=== PATIENT | female | born 1940 | race Caucasian/White ===

== ENCOUNTER 2016-06-12 14:40 | Outpatient (CLI) | payer MEDICARE, BC, OTHER ==
[~2016-06-12] VITALS: Ht 160 cm; Wt 71.8 kg
[~2016-06-12 14:40] MED LIST: ACETAMINOPHEN325 MG PO; ANTIVERT25 MG PO; ASPIRIN 81 MG E81 MG PO; CARAFATE1 G PO; CELEXA10 MG PO; COREG12.5 MG PO; COUMADIN3 MG PO; COUMADIN5 MG PO; EPITOL200 MG; EPITOL200 MG PO; FIORICET TABLET1 TAB PO; HEMOCYTE PLUS C1 CAP PO; IMDUR60 MG PO; LIPITOR10 MG; LIPITOR10 MG PO; NITROSTAT0.4 MG SL; PAMELOR10 MG PO; PEPCID40 MG PO; PHENERGAN25 M1 PO; PLAVIX75 MG PO; PRILOSEC20 MG PO; PRINIVIL20 MG PO; PROTONIX40 MG PO; VITAMIN B-1000 MCG/M IM; ZANTAC150 MG PO
[2016-06-12 16:48] VITALS: BP 146/65; Ht 160 cm; Wt 71.8 kg
[2016-06-12] MEDS ORDERED: BACLOFEN10 MG PO ×2 (16:52→17:12)
--- NOTE | 2016-06-12 17:00 | NUR ---
1640 H & H 8.9 27.3 1ST UNIT CHECKED AT BEDSIDE BY THIS NURSE AND DONNA SOLIMAN RN. INITIATED BY ALARIS PUMP AT 50/CC/HR.PREMEDS GIVEN PER MAY 1654 DENIES PROBLEMS. RATE INCREASED TO 150/CC/HR. REG DIET ORDERED.
--- NOTE | 2016-06-12 17:21 | NUR ---
1710 DENIES PROBLEMS WITH BLOOD, RATE INCREASED TO 200/CC/HR. LIGHT SUPPER DIET HAS BEEN ORDERED FOR PT.
--- NOTE | 2016-06-12 17:29 | NUR ---
1725 FINGER FOOD DIET SERVED IV SITE LOOKING GOOD AND PATENT. DENIES PROBLEMS.
--- NOTE | 2016-06-12 18:30 | NUR ---
UNIT PRBC'S FINISHED INFUSING, LINE FLUSHING NOW WITH NS AT KVO, PATIENT DENIES ANY COMPLAINTS, UNDERSTANDS NEED TO REMAIN FOR ONE HOUR BEFORE DISCHARGE AND AGREES
--- NOTE | 2016-06-12 19:35 | NUR ---
PATIENT DENIES ANY COMPLAINTS. VSS. LEFT FOREARM PIV DC'D WITH TIP INTACT. DISCHARGE INSTRUCTIONS REVIEWED WITH PATIENT AND SPOUSE. PATIENT DISCHARGED HOME VIA WHEELCHAIR TO PRIVATE VEHICLE WITH SPOUSE
== END 2016-06-12 19:35 | disposition home or self-care (01) ==
LOC: D.OPS 14:40
DX: D64.9 Anemia, unspecified (principal)

== ENCOUNTER → 2016-07-11 08:44 | Outpatient (CLI) | payer MEDICARE, BC, OTHER ==
[2016-06-12 16:48] VITALS: BMI 28.0
[~2016-07-11 08:44] MED LIST changes: +BACLOFEN10 MG PO
== END | disposition home or self-care (01) ==
LOC: D.CT 08:44
DX: R91.1 Solitary pulmonary nodule (principal)

== ENCOUNTER 2016-08-15 05:27 | Outpatient (CLI) | payer MEDICARE, BC, OTHER ==
[~2016-08-15] VITALS: Ht 160 cm; Wt 71.8 kg
[~2016-08-15 05:27] MED LIST changes: +ANTIVERT12.5 MG PO
[2016-08-15] MEDS ORDERED: VITAMIN D5000 UNIT PO (06:21)
[2016-08-15 06:28] VITALS: BP 184/79; Ht 160 cm; Wt 71.8 kg
[2016-08-15 06:34] LABS: BASOPHILS 0.6 % (0-2); EOSINOPHILS 3.7 % (0-7); HEMATOCRIT 34.2 % (36.0-48.0); IMMATURE GRANULOCYTES 0.3 % (0-5); LYMPHOCYTES 34.6 % (15-50); MCH 32.2 pg (26.0-34.0); MCHC 32.2 g/dL (31.0-37.0); MEAN PLATELET VOLUME 9.6 fL (7.4-10.4); NEUTROPHILS 48.8 % (40-80); RBC 3.42 10x6/uL (4.00-5.40); RDW 14.9 % (11.5-14.5); WBC 3.2 10x3/uL (4.8-10.8)
[2016-08-15 06:37] LABS: PLATELET COUNT 287 10x3/uL (130-400)
[2016-08-15 06:43] LABS: ANION GAP 6.4 mmol/L (8-16); CALCIUM 8.5 mg/dL (8.5-10.1); CARBON DIOXIDE 30.9 mmol/L (21.0-32.0); CREATININE - SERUM 0.9 mg/dL (0.6-1.3); POTASSIUM - SERUM 3.3 mmol/L (3.5-5.1)
[2016-08-15 06:46] LABS: APTT 22.7 SECONDS (22.8-39.4); INR 1.01 (0.85-1.17); PROTIME 13.1 SECONDS (11.6-15.0)
--- NOTE | 2016-08-15 07:12 | NUR ---
0700 KENNA SEBASTIAN RN NOTIFIED OF NO H & P ON CHART.
--- NOTE | 2016-08-15 09:39 | NUR ---
6040 SEE POST PROCEDURE VITAL SIGNS CHECK LIST FOR ALL VITAL SIGNS
--- NOTE | 2016-08-15 10:06 | NUR ---
1660 A PHONE CALL PLACED TO DR. KURTZ NURSE TO REPORT ELEVATED BP.
--- NOTE | 2016-08-15 10:57 | NUR ---
1057 PORTABLE CXR DONE.
== END 2016-08-15 14:15 | disposition home or self-care (01) ==
LOC: D.OPS 05:27 → D.CT 08:00 → D.OPS 14:15
PROVIDERS: Specialist
DX: C34.11 Malignant neoplasm of upper lobe, right bronchus or lung (principal)

== ENCOUNTER 2016-08-17 09:55 | Day surgery (SDC) | payer MEDICARE, BC, OTHER ==
[~2016-08-17] VITALS: Ht 160 cm; Wt 71.8 kg
[~2016-08-17 09:55] MED LIST changes: +VITAMIN D5000 UNIT PO
[2016-08-17 10:38] VITALS: BP 203/82; Ht 160 cm; Wt 71.8 kg
[2016-08-17 10:47] LABS: HEMATOCRIT 35.6 % (36.0-48.0); HEMOGLOBIN 11.7 g/dL (12-16); MCH 32.7 pg (26.0-34.0); MCHC 32.9 g/dL (31.0-37.0); MCV 99.4 fL (80.0-100.0); MEAN PLATELET VOLUME 10.4 fL (7.4-10.4); RBC 3.58 10x6/uL (4.00-5.40); RDW 15.2 % (11.5-14.5); WBC 3.3 10x3/uL (4.8-10.8)
--- NOTE | 2016-08-17 11:43 | NUR ---
PT WAS GIVEN IV HYDRALAZINE PER ANETHESIA ORDERS. BP IS DECREASIN/70 WAS LATEST READING. WILL CONTINUE TO MONITOR. CALL LIGHT WITHIN REACH WITH AT BEDSIDE.
--- NOTE | 2016-08-17 12:45 | NUR ---
1230- PT TO ROOM WITH HOB ELEVATED AND IN SUPINE POSITION. VSS. RESPONDING TO VERBAL STIMULI AND IS READY FOR FULL LIQUID TRAY. WILL NKI. 1245- TOLERATING FULL LIQUIDS. AT BEDSIDE.
--- NOTE | 2016-08-17 13:16 | NUR ---
1300- VOIDED WITHOUT DIFFICULTY. IV D/C'D, PT TOLERATED. CATHETER INTACT. 1310- DISCHARGE INSTRUCTIONS COMPLETED, PT VERBALIZES UNDERSTANDING. PAPERWORK SIGNED. 1315- PT DISCHARGED VIA WHEELCHAIR WITH .
--- NOTE | 2016-08-23 19:33 | OP ---
PATIENT NAME: CJ REDDY MEDICAL RECORD: [id number] :39 LOCATION:D.OPS ADMISSION DATE: SURGEON: ANDRÉS BREEN DO DATE OF OPERATION: 08/17/2016 PROCEDURE: EGD. INDICATIONS: Fecal occult blood positive and iron deficiency anemia. SCOPE: Olympus video gastroscope. MEDICATIONS: Propofol 180 mg IV per anesthesia. ESTIMATED BLOOD LOSS: None. COMPLICATIONS: None. FINDINGS: Informed consent was given. The patient was made comfortable with the above medication. After reaching an adequate level of sedation by slow IV push, the patient was placed on her left side. The endoscope was then advanced under direct visualization through the mouth to the second portion of the duodenum. The upper, middle, and distal third of the esophagus all appeared normal. At the GE junction, there was some mild LA class A reflux induced esophagitis present. From this point, a sliding type hiatal hernia could be visualized. The endoscope was advanced beyond the GE junction into the stomach and retroflexed to view the cardia which again revealed a small sliding type hiatal hernia. The fundus and body of the stomach appeared normal. As the scope was advanced into the antrum and prepyloric region, there was some evidence of previous ulcerations which appear like they have healed. There was some granularity to this site consistent with some mild gastritis. No biopsies were taken as the patient has had multiple upper endoscopies in the past with biopsies. Scope was advanced beyond the pylorus into the duodenum where the bulb and second portion of the duodenum appeared normal. The scope was then withdrawn from the patient. The patient tolerated the procedure well and there were no complications. IMPRESSION: 1. Mild, LA class A, reflux induced esophagitis of the gastroesophageal junction. 2. Small sliding hiatal hernia. 3. Findings consistent with gastritis including granularity and some erythema. 4. Healed ulcer sites in the antrum and prepyloric region. PLAN AND RECOMMENDATIONS: 1. Discharge home when recovery parameters are met. 2. Continue current diet. 3. Continue current medications, including famotidine 40 mg daily. 4. Schedule colonoscopy regarding the positive fecal immunochemical testing. 5. Further recommendations to follow findings at time of lower endoscopy. TRANSINT:[id number] Voice Confirmation ID: [id number] DOCUMENT ID: [id number] OPERATIVE REPORT [id number] CJ REDDY ANDRÉS BREEN DO at 1934 CC: [id number] DICTATION DATE: 08/17/16 1218 JOY LOADING MACHINE OPERATOR: 08/17/16 1908 [facility] 08/17/16 [id number] [place] [address]
== END 2016-08-17 13:15 | disposition home or self-care (01) ==
LOC: D.OPS 09:55
PROVIDERS: Anesthesiology
DX: K21.0 Gastro-esophageal reflux disease with esophagitis (principal); K44.9 Diaphragmatic hernia without obstruction or gangrene; D50.9 Iron deficiency anemia, unspecified

== ENCOUNTER → 2016-09-05 07:56 | Outpatient (CLI) | payer MEDICARE, BC, OTHER ==
[2016-08-17 10:38] VITALS: BMI 28.0
== END | disposition home or self-care (01) ==
LOC: D.RT 07:56
DX: C34.11 Malignant neoplasm of upper lobe, right bronchus or lung (principal)

== ENCOUNTER → 2016-09-15 12:10 | Outpatient (CLI) | payer MEDICARE, BC, OTHER ==
[2016-08-17 10:38] VITALS: BMI 28.0
== END | disposition home or self-care (01) ==
LOC: D.US 12:10
DX: I65.23 Occlusion and stenosis of bilateral carotid arteries (principal)

== ENCOUNTER 2016-09-25 08:20 | Inpatient (IN) | payer MEDICARE, BC, OTHER ==
[~2016-09-25] VITALS: Ht 160 cm; Wt 69.3 kg
[2016-09-25] VITALS (17 sets, daily range): BP systolic 115–158; BP diastolic 53–99; BMI 27.5
--- NOTE | 2016-09-25 09:10 | NUR ---
PT ARRIVED TO CV O2 FROM HOME. PT PLACED IN GOWN AND 2 20G PIV INTIATED. PT IS ALERT AND ORIENTED X4. S1S2 NOTED, SB PER CM. LUNG SOUNDS CLR BILAR. PPP-BOUNDING. LAB WORK AND XR- CHEST OBTAINED AT THIS TIME. SEE ADMISSION ASSESSMENT FOR FURTHER DETAIL.
[2016-09-25 09:16] LABS: HEMATOCRIT 37.3 % (36.0-48.0); MCH 32.3 pg (26.0-34.0); MCHC 32.2 g/dL (31.0-37.0); MCV 100.3 fL (80.0-100.0); MEAN PLATELET VOLUME 9.7 fL (7.4-10.4); RBC 3.72 10x6/uL (4.00-5.40); WBC 3.9 10x3/uL (4.8-10.8)
[2016-09-25 09:20] LABS: APTT 25.1 SECONDS (22.8-39.4); INR 1.16 (0.85-1.17); PROTIME 14.7 SECONDS (11.6-15.0)
[2016-09-25 09:21] LABS: ANION GAP 12.5 mmol/L (8-16); CALCIUM 9.5 mg/dL (8.5-10.1); CARBON DIOXIDE 27.4 mmol/L (21.0-32.0); CREATININE - SERUM 0.9 mg/dL (0.6-1.3); POTASSIUM - SERUM 3.9 mmol/L (3.5-5.1)
--- NOTE | 2016-09-25 10:00 | NUR ---
PT UTILIZES THE BATHROOM INDEPENDENTLY.
[2016-09-25] MEDS ORDERED: PHENERGAN25 M1 (10:39)
--- NOTE | 2016-09-25 12:00 | NUR ---
PT PROVIDED WITH LUNCH TRAY, PT EATS INDEPENDENTLY. PT VOICES NO OTHER NEEDS AT THIS TIME.
[2016-09-25 14:18] LABS: APPEARANCE CLEAR (CLEAR); BILIRUBIN NEGATIVE (NEGATIVE); COLOR YELLOW (YELLOW); GLUCOSE NEGATIVE (NEGATIVE); KETONE NEGATIVE (NEGATIVE); LEUKOCYTE ESTERASE 1+ (NEGATIVE); NITRITE NEGATIVE (NEGATIVE); PROTEIN NEGATIVE (NEGATIVE); UROBILINOGEN NORMAL (NORMAL)
[2016-09-25 14:22] LABS: BACTERIA NONE SEEN /hpf (NONE SEEN); EPITHELIAL CELLS NSEEN /hpf (0-5); RED CELLS - URINE NONE SEEN /hpf (0-5)
--- NOTE | 2016-09-25 15:00 | NUR ---
PT FAMILY HERE FOR VISITATION. UPDATE PROVIDED
--- NOTE | 2016-09-25 16:51 | NUR ---
PT SERVED DINNER TRAY SITTING UP IN CHAIR. PT VOICES NO OTHER NEEDS AT THIS TIME. VSS. WILL MONITOR.
--- NOTE | 2016-09-25 17:18 | NUR ---
BP 160-180 SYSTOLIC, DR WASHINGTON NOTIFIED. NO NEW ORDERS RECD.
--- NOTE | 2016-09-25 19:00 | NUR ---
Assessment complete. See flowsheet. Pt awake upon entrance into room and self-positioned to back with HOB @ 10 degrees. Pt alert, oriented to person, place, time and situation with no neuro deficits to note. Pt moving all extremities with 5/5 strength and no edema noted. Pupils size 3 bilaterally ERRLA. Pt respirations even and unlabored. O2 RA. Lung sounds clear to all lyons. HR SR with S1S2 auscultated. All peripheral pulses +2 with capillary refill <3 seconds. Left forearm PIV site CDI no s/s infection or infiltration with NS infusing @ 30cc/hr. Right hand PIV site CDI no s/s infection or infiltration with Heparin gtt infusing @ 1100un/hr. Abdomen soft, non-tender, non-distended with BS present to all quadrants. Pt denies pain at this time. Further needs denied. Rapport established. Call light and bedside table within pt reach. CPOC.
--- NOTE | 2016-09-25 20:30 | NUR ---
Pt up to bathroom and ambulating. IV paused.
--- NOTE | 2016-09-25 20:45 | NUR ---
Pt back to bed IV reconnected. VSS.
--- NOTE | 2016-09-25 21:00 | NUR ---
PM meds administered. Fresh ice water provided. See MAR> CPOC.
--- NOTE | 2016-09-25 23:00 | NUR ---
Reassessment complete. See flowsheet. Pt disconnected from IV tubings and monitoring briefly for bathroom privelages and self-ambulates with no deficits. Afterwards, pt back to bed to self-position for comfort. VSS. No neuro changes to note. O2 RA. Lung sounds remain CTA. HR SB with S1S2 auscultated. All peripheral pulses +2 with capillary refill <3 seconds. PIV sites remain CDI with NO IVF changes to note. PTT draw recently completed with results pending. BS +. No other changes to note. Call light and bedside table remain within pt reach. CPOC.
--- NOTE | 2016-09-25 23:31 | NUR ---
PTT 65.6. No changes to heparin gtt. Will recheck PTT in 6hrs.
[2016-09-26] VITALS (24 sets, daily range): BP systolic 99–164; BP diastolic 36–84; Ht 160 cm; Wt 69.3 kg
--- NOTE | 2016-09-26 01:00 | NUR ---
Pt resting quietly with VSS. NO s/s pain or distress and allowed to continue resting undisturbed. Call light and bedside table remain within pt reach. CPOC.
--- NOTE | 2016-09-26 03:00 | NUR ---
Reassessment complete. See flowsheet. Pt resting quielty with VSS and awakens easily to verbal stimulation with no neuro changes to note from previous assessment. Respirations unlabored. Lung sounds remain CTA. HR SB with S1S2 auscultated. All peripheral pulses +2 with capillary refill <3 seconds. PIV sites remain CDI with NO IVF changes to note. BS +. Pain denied. No changes to note. Patient denies further needs at this time and continues to rest. Call light and bedside table remain within pt reach. CPOC.
--- NOTE | 2016-09-26 05:00 | NUR ---
Pt helped OOB to bathroom.
--- NOTE | 2016-09-26 06:34 | NUR ---
PTT 89.1 NO changes to heparin gtt rate.
--- NOTE | 2016-09-26 07:00 | NUR ---
PT REPORT REC'D, PT CARE ASSUMED. PT RESTING WITH EYES CLOSED, NO C/O PAIN, VSS, ROOM AIR. SHIFT ASSESSMENT COMPLETED, SEE FLOW SHEET. LEFT FOREARM PIV WITH NS INFUSING AT 30CC/HR, NO SIGNS OF INFILTRATION, DRESSING CDI. RIGHT HAND PIV WITH HEPARIN INFUSING AT 1100UNITS/HR, NO REDENESS OR SIGNS OF INFILTRATION, DRESSING CDI. PT UP TO BATHROOM NEEDED. ROOM FREE OF CLUTTER, CALL LIGHT IN REACH, WILL CONTINUE TO MONITOR PT.
--- NOTE | 2016-09-26 08:30 | NUR ---
AMBULATED PT AROUND ROOM, PT TOELRATED WELL, WILL CONTINUE TO MONITOR PT.
--- NOTE | 2016-09-26 09:00 | NUR ---
PT FAMILY AT THE BEDSIDE, ALL QUESTIONS ANSWERED, VSS, WILL CONTINUE TO MONITOR PT.
--- NOTE | 2016-09-26 10:24 | NUR ---
DR. ELY AT THE BEDSIDE, ALL QUESTIONS ANSWERED, VSS, WILL CONTINUE TO MONITOR PT.
--- NOTE | 2016-09-26 10:27 | NUR ---
* Is the patient Alert and Oriented? Yes 0 * How many steps to enter\exit or inside your home? 1 0 * PCP Dr. Murillo 0 * Pharmacy [facility] on [address] * Preadmission Environment Home with Family 0 * ADLs Independent 0 * List name and contact numbers for known caregivers / representatives who currently or will assist patient after discharge: Spouse - Jack [phone] 0 * Can the patient safely return to the preadmission environment? Yes 0 * Has this patient been hospitalized within the prior 30 days at any hospital? No 09/26/2016 10:27 DCP: Discharge Planning Patient Name: CJ REDDY Admission Status: Urgent Accout number: [id number] Admission Date: 09-25-2016 : 1940 Admission Diagnosis:MALIGNANT NEOPLASM OF UPPER LOBE, RIGHT BRONCHUS OR KAR Attending: [place]LE Current LOS: 1 Anticipated DC Date: 10-04-2016 Planned Disposition: Primary Insurance: MEDICARE A & B Discharge Planning Comments: CM met with patient to assess dc plans/needs. Patient states she lives at home with her , Jack. She reports she was independent with all ADL's & IADL's prior to admission. She does not use any assistive devices for mobility and has not had home health services in the past. At dc, she will return home with her . She is open to rehab or home health if needed. CM will follow. Playground Monitor: Venus Saxena
--- NOTE | 2016-09-26 11:00 | NUR ---
PT RESTING WITH EYES CLOSED, C/O HEADACHE, REASSESSMENT COMPLETED, SEE FLOW SHEET. ROOM FREE OF CLUTTER, CALL LIGHT IN REACH, WILL CONTINUE TO MONITOR PT.
[2016-09-26 11:07] LABS: HEMATOCRIT 37.4 % (36.0-48.0); HEMOGLOBIN 12.3 g/dL (12-16); MCH 32.5 pg (26.0-34.0); MCHC 32.9 g/dL (31.0-37.0); MCV 98.9 fL (80.0-100.0); MEAN PLATELET VOLUME 9.7 fL (7.4-10.4); RBC 3.78 10x6/uL (4.00-5.40); RDW 13.9 % (11.5-14.5); WBC 4.8 10x3/uL (4.8-10.8)
[2016-09-26 11:10] LABS: INR 1.03 (0.85-1.17); PROTIME 13.4 SECONDS (11.6-15.0)
[2016-09-26 11:17] LABS: ALBUMIN 3.3 g/dL (3.4-5.0); ANION GAP 6.4 mmol/L (8-16); BILIRUBIN - TOTAL 0.2 mg/dL (0.2-1.3); CALCIUM 8.5 mg/dL (8.5-10.1); CARBON DIOXIDE 27.5 mmol/L (21.0-32.0); POTASSIUM - SERUM 3.9 mmol/L (3.5-5.1); PROTEIN - SERUM 6.9 g/dL (6.4-8.2)
[2016-09-26 13:45] LABS: APPEARANCE CLEAR (CLEAR); BILIRUBIN NEGATIVE (NEGATIVE); COLOR YELLOW (YELLOW); GLUCOSE NEGATIVE (NEGATIVE); KETONE NEGATIVE (NEGATIVE); LEUKOCYTE ESTERASE NEGATIVE (NEGATIVE); NITRITE NEGATIVE (NEGATIVE); PROTEIN NEGATIVE (NEGATIVE); UROBILINOGEN NORMAL (NORMAL)
--- NOTE | 2016-09-26 15:00 | NUR ---
PT RESTING WITH EYES CLOSED, NO C/O PAIN, VSS, REASSESSMENT COMPLETED, SEE FLOW SHEET. ROOM FREE OF CLUTTER, CALL LIGHT IN REACH, WILL CONTINUE TO MONITOR PT.
--- NOTE | 2016-09-26 15:21 | NUR ---
DR. DIAL AT THE BEDSIDE, VSS, WILL CONTINUE TO MONITOR PT.
--- NOTE | 2016-09-26 16:00 | NUR ---
TRANSFERRED PT FROM BED TO CHAIR, PT TOLERATED WELL, WILL CONTINUE TO MONITOR PT.
--- NOTE | 2016-09-26 16:54 | NUR ---
CALLED DR. THEODORE' OFFICE, SPOKE WITH PASTOR TO INFORM DR. THEODORE OF CONSULT FROM
--- NOTE | 2016-09-26 16:56 | NUR ---
NOTIFIED DR. SALAZAR OF CONSULT FROM DR. WASHINGTON, "HE TALKED TO ME ABOUT IT, I WILL SEE HER."
--- NOTE | 2016-09-26 17:41 | NUR ---
PT'S SBP 106-101, CALLED DR. WASHINGTON TO SEE IF HE WANTED US TO GIVE IT TO HER STILL WITH HER BP THERE, "GO AHEAD AND GIVE IT TO HER, SHE NEEDS IT, SHE DOESN'T NEED TO MISS A DOSE." WILL CONTINUE TO MONITOR PT.
--- NOTE | 2016-09-26 18:08 | NUR ---
PT FAMILY AT THE BEDSIDE, ALL QUESTIONS ANSWERED, VSS, WILL CONTINUE TO MONITOR PT.
--- NOTE | 2016-09-26 18:17 | NUR ---
TRANSFERRED PT FROM CHAIR TO BED, PT TOLERATED WELL, WILL CONTINUE TO MONITOR PT.
--- NOTE | 2016-09-26 19:00 | NUR ---
Assessment complete. See flowsheet. Pt resting upon entrance into room and awakens easily to verbal stimulation. Pt alert and oriented to person, place, time and situation with no neuro deficits to note. Pt moving all extremities with 5/5 strength and no edema noted. Pupils size 3 bilaterally ERRLA. Pt respirations even and unlabored. O2 RA. Lung sounds clear to all lyons. HR SR with S1S2 auscultated. All peripheral pulses +2 with capillary refill <3 seconds. Left forearm PIV site CDI no s/s infection or infiltration with NS infusing @ 30cc/hr. Right hand PIV site CDI no s/s infection or infiltration with Heparin gtt infusing @ 1000un/hr. Abdomen soft, non-tender, and non-distended with BS present to all quadrants. Pt up ad-lip and tolerating well. Pain denied. Needs denied at this time and pt continues to rest. Call light and bedside table remain within pt reach. CPOC.
--- NOTE | 2016-09-26 21:00 | NUR ---
Pt disconnected for ambulation around room.
--- NOTE | 2016-09-26 23:00 | NUR ---
Reassessment complete. See flowsheet. Pt resting to left side with VSS and awakens easily to verbal stimulation. No neuro changes to note. O2 RA. Lung sounds remain clear to all lyons. HR SB with S1S2 auscultated. All peripheral pulses +2 with capillary refill <3 seconds. PIV sites remain CDI with NO IVF changes to note. BS +. Pt continues to self-position for comfort and denies pain at this time. Call light and bedside table remain within pt reach. CPOC.
[2016-09-27] VITALS (36 sets, daily range): BP systolic 87–149; BP diastolic 35–68
--- NOTE | 2016-09-27 | NUR ---
Heparin gtt turned off per order. Pt NPO per order.
--- NOTE | 2016-09-27 01:00 | NUR ---
Pt resting quielty with VSS. No s/s pain or distress and allowed to continue resting undisturbed. Call light and bedside table remain within reach. CPOC.
--- NOTE | 2016-09-27 03:00 | NUR ---
Reassessment complete. See flowsheet. No changes to note. VSS. Pt awakens easily and denies needs at this time. Pt continues to self-position for comfort. Will provide chlorhexidine bath wipes later this AM for preop bath with clipping of any necessary hairs.
--- NOTE | 2016-09-27 05:00 | NUR ---
OOB for chlorhexidine bath with gown and linen changes. No hair to clip. Pt up to chair. VSS. Reminded of NPO status. Will administer preop meds when notified. Pt remains calm and cooperative. Denies anxiety/nervousness.
[2016-09-27 05:19] LABS: EOSINOPHILS 4.9 % (0-7); HEMATOCRIT 34.2 % (36.0-48.0); HEMOGLOBIN 11.1 g/dL (12-16); IMMATURE GRANULOCYTES 0.3 % (0-5); LYMPHOCYTES 38.5 % (15-50); MCH 32.4 pg (26.0-34.0); MCHC 32.5 g/dL (31.0-37.0); MCV 99.7 fL (80.0-100.0); MEAN PLATELET VOLUME 9.7 fL (7.4-10.4); NEUTROPHILS 43.3 % (40-80); PLATELET COUNT 237 10x3/uL (130-400); RBC 3.43 10x6/uL (4.00-5.40)
[2016-09-27 05:23] LABS: WBC 3.1 10x3/uL (4.8-10.8)
--- NOTE | 2016-09-27 05:30 | NUR ---
Air overlay mattress placed on bed with bed zeroed reading 158.7lbs with patient.
[2016-09-27 05:32] LABS: INR 1.05 (0.85-1.17); PROTIME 13.6 SECONDS (11.6-15.0)
[2016-09-27 05:38] LABS: APTT 25.1 SECONDS (22.8-39.4)
[2016-09-27 05:46] LABS: ANION GAP 11.7 mmol/L (8-16); CALCIUM 7.8 mg/dL (8.5-10.1); CARBON DIOXIDE 27.3 mmol/L (21.0-32.0); CREATININE - SERUM 0.9 mg/dL (0.6-1.3)
--- NOTE | 2016-09-27 06:41 | NUR ---
pt gone to OR with chart
--- NOTE | 2016-09-27 12:25 | NUR ---
PT ARRIVED BY BED FROM OR. SWITCHED OVER TO ICU MONITORS. PT CONFUSED. TOSSING AND TURNING IN BED. ATTEMPTING TO REDIRECT AND ORIENT TO PLACE. WILL STAY 1:1 NURSING UNTIL PT IS RECOVERED FROM ANESTHESIA AND MORE ORIENTED. EPIDURAL INFUSING PER MD ORDERS. RATE AT 7CC/HR WITH 4CC Q15 MIN BOLUS PRN. BILATERAL SCDs AND ABDOULAYE HOSE IN PLACE.
--- NOTE | 2016-09-27 12:55 | NUR ---
DR. WASHINGTON SPOKE WITH FAMILY AND UPDATED THEM ON PT'S STATUS.
--- NOTE | 2016-09-27 13:00 | NUR ---
PT C/O RIGHT SHOULDER PAIN. DR. DIAL AT BEDSIDE WITH ANESTHESIA TO ASSESS PT. ORDERS RECEIVED.
--- NOTE | 2016-09-27 13:05 | NUR ---
K PAD TO RIGHT SHOULDER.
--- NOTE | 2016-09-27 14:54 | NUR ---
DR. HOOK AT BEDSIDE.
--- NOTE | 2016-09-27 15:22 | NUR ---
PT C/O RIGHT EYE PAIN. DIFFICULTY OPENING. DR. DIAL NOTIFIED. ORDERS RECEIVED.
--- NOTE | 2016-09-27 15:40 | NUR ---
DR. DIAL AT BEDSIDE. MEDICATED RIGHT EYE WITH TETRACAINE DROPS AND COVERED WITH EYE PAD. PT REPORTS IMPROVEMENT IN PAIN.
--- NOTE | 2016-09-27 18:20 | NUR ---
PT'S AT BEDSIDE. UPDATED ON PT'S STATUS. PT REPOSITIONED FOR COMFORT. CONTINUED HEAT PAD TO RIGHT SHOULDER.
--- NOTE | 2016-09-27 19:15 | NUR ---
REPORT RECEIVED AND CARE ASSUMED. INITIAL SHIFT ASSESSMENT COMPLETED SEE FLOWSHEET. PT NOTED TO HAVE CT X 2, EPIDURAL WITH DRESSING CDI, ALERT, F/C TO CRITICORE, DRESSING S/P R THORACOTOMY CDI TO RIGHT LATERAL CHEST. PT NOTED TO HAVE A PATCH OVER RIGHT EYE D/T EARIER C/O EYE PAIN WHICH WAS ASSESSED BY DR. DIAL AND OFF GOING RN. NO C/O EYE DISCOMFORT AT THIS TIME. PT BEING MONITORED PER STANDARD CVICU PROTOCOL. IVF AND LINES ARE PROPERLY DATED AND LABELED AND CURRENT
--- NOTE | 2016-09-27 19:45 | NUR ---
SPO2 89-89 IS DONE 1250 ML WITH FAIR EFFORT. O2 STARTED AT 2L N/C
--- NOTE | 2016-09-27 20:15 | NUR ---
DR. THEODORE HERE TO SEE PT. UPDATE GIVEN
--- NOTE | 2016-09-27 20:49 | NUR ---
RT AT BEDSIDE FOR ABG
--- NOTE | 2016-09-27 20:58 | NUR ---
ABG RESULTS REVIEWED. SPO2 AT 100% O2 TURNED OFF AT THIS TIME PO2 [id number]
--- NOTE | 2016-09-27 21:15 | NUR ---
NO VISITORS AT THIS TIME
--- NOTE | 2016-09-27 21:45 | NUR ---
B/P KEEPS FALLING IN UPPER 80'S, MIGUEL-SYNEPHRINE STARTED AT 0.1MCG/KG/MIN WITH IMMEDIATE POSITIVE RESPONSE.
--- NOTE | 2016-09-27 23:00 | NUR ---
SHIFT REASSESSMENT COMPLETED SEE FLOWSHEET. PT REMAINS ON 0.1 MCG/KG/MIN MIGUEL-SYNEPHRINE AND SB/P REMAINS IN UPPER 90'S AND LOW 100'S. WILL CONTINUE TO MONITOR. PT DENIES PAIN DOES STATE RIGHT SHOULDER ACHES SOME DUE TO HER FIBROMYALGIA AND IS A CONSTANT SOURCE OF DISCOMFORT FOR HER. NO OTHER SIGNIFICANT CHANGES
[2016-09-28] VITALS (71 sets, daily range): BP systolic 80–139; BP diastolic 37–545
--- NOTE | 2016-09-28 01:15 | NUR ---
RT AT BEDSIDE FOR ABG'S, REVIEWED, NO CHANGES MADE
--- NOTE | 2016-09-28 03:00 | NUR ---
SHIFT REASSESSMENT COMPLETED SEE FLOWSHEET. NO SIGNIFICANT CHANGES. DOING IS WITH PT WHO IS DOING 1000ML. PT CONTINUES TO SEROSANG DRAINGAGE FROM CHEST TUBES DRAINING TO CDS 20CM SUCTION. ANTERIOR WITH PERSISTING AIR LEAK. USING PILLOW FOR SUPPORT AND TO RELIEVE PRESSURE
--- NOTE | 2016-09-28 03:30 | NUR ---
RADIOLOGY TECHS AT BEDSIDE FOR AM PCXR. PT TOLERATED WELL
--- NOTE | 2016-09-28 05:30 | NUR ---
blood drawn from cvl and sent for analysis
[2016-09-28 05:38] LABS: HEMATOCRIT 32.9 % (36.0-48.0); HEMOGLOBIN 10.8 g/dL (12-16); MCH 32.5 pg (26.0-34.0); MCHC 32.8 g/dL (31.0-37.0); MCV 99.1 fL (80.0-100.0); MEAN PLATELET VOLUME 9.5 fL (7.4-10.4); RBC 3.32 10x6/uL (4.00-5.40); RDW 14.1 % (11.5-14.5); WBC 9.5 10x3/uL (4.8-10.8)
[2016-09-28 05:54] LABS: ALBUMIN 2.7 g/dL (3.4-5.0); ANION GAP 11.4 mmol/L (8-16); BILIRUBIN - TOTAL 0.2 mg/dL (0.2-1.3); CALCIUM 7.6 mg/dL (8.5-10.1); CARBON DIOXIDE 26.1 mmol/L (21.0-32.0); CREATININE - SERUM 0.9 mg/dL (0.6-1.3); POTASSIUM - SERUM 3.5 mmol/L (3.5-5.1)
--- NOTE | 2016-09-28 06:15 | NUR ---
meds given as documented on may for nausea t/t discomfort in right shoulder. pt states she did get some relief from the toradol at 0530 but the nausea remains somewhat. now requesting antiemetic medication. pt has had to have pollo-synephrine titrated to maintain ordered pf 90-140. see iv flowsheet for specific changes
--- NOTE | 2016-09-28 06:58 | NUR ---
pt states her nausea is essentially gone and her shoulder feels "much better". remains on pollo-synephrine at 0.6mcg/kg/min at this time
--- NOTE | 2016-09-28 07:30 | NUR ---
ASSESSMENT DONE PER FLOWSHEET. SITTING UP EATING BREAKFAST. EPIDURAL ASSESSED AND INFUSING. VOICES NO CO AT TIME. MIGUEL TITRATED TO KEEP BP > 90.
--- NOTE | 2016-09-28 08:30 | NUR ---
RECEIVED PT FOR CARE FROM MALI MAYER RN. DR. WASHINGTON AT BEDSIDE WITH PT. UPDATED ON PT'S STATUS. DISCUSSED PLAN OF CARE WITH PT.
--- NOTE | 2016-09-28 10:55 | NUR ---
PT HAD COMPLETE BATH AND LINEN CHANGE. TOLERATED WELL. DRESSINGS CHANGED TO RIGHT CHEST TUBES X2. NO S/S OF INFECTION NOTED.
--- NOTE | 2016-09-28 12:19 | NUR ---
PTS FAMILY AT BEDSIDE.
--- NOTE | 2016-09-28 12:41 | NUR ---
Nutrition Follow Up: Pt is POD 1 pulmonary resection. Pt is eating 66% meal avg on a regular diet. Wt stable. Meds and labs reviewed. Rec continue current diet. Will continue to provide selective menus and honor food preferences. RD following.
--- NOTE | 2016-09-28 16:54 | NUR ---
DR. DIAL AT BEDSIDE. EPIDURAL DECREASED TO 4CC/HR BASAL RATE DUE TO HYPOTENTION AND CONFUSION.
--- NOTE | 2016-09-28 19:00 | NUR ---
REPORT RECEIVED AND ASSESMENT COMPLETED. SEE FLOWSHEET FOR FULL DETAILS. PT HAD A RIGHT UPPER LOBECTOMY ON SUNDAY. CURRENTLY ON ROOM AIR WITH AN O2 SAT OF 94%. OTHER THAN CHEST TUBE SUCTION SOUNDS, LUNGS SOUND CLEAR TO AUSCULTATION. THERE IS A LEAK IN THE ANTERIOR CHEST TUBE. MIGUEL DRIP AT 0.3 MCG/KG/MIN. WILL TITRATE THROUGHOUT SHIFT. VSS. WILL MONITOR.
--- NOTE | 2016-09-28 19:00 | NUR ---
REPORT RECEIVED AND ASSESSMENT COMPLETED. PT WAS RUL LOBECTOMY ON SUNDAY. CHEST TUBES IN PLACE IN RIGHT LAT CHEST. LEAK IN ANTERIOR TUBE. SUCTION CAN BE HEARD UPON AUSCULTATION WELL AN EXPIRATORY WHEEZE. MIGUEL DRIP AT 10 MCG/KG/MIN. WILL TITRATE NEEDED. VSS. WILL CONTINUE TO MONITOR.
--- NOTE | 2016-09-28 21:00 | NUR ---
2100 MEDS GIVEN. MIGUEL DRIP HAS BEEN TURNED OFF. B/P IN THE 130'S SYSTOLIC. VSS. WILL MONITOR. PT EXPERIENCING HALLUCINATIONS OFF AND ON, SHE IS AWARE THAT SHE IS HALLUCINATING, AND i AM ABLE TO REORIENT HER TO REALITY.
--- NOTE | 2016-09-28 23:00 | NUR ---
reassessment completed. see flowsheet for full details. pt continues to be confused; however still moises to reorient. pt temperaure has gone up. will continue to turn cough and deep breathe and monitor for need of further action.
[2016-09-29] VITALS (27 sets, daily range): BP systolic 82–140; BP diastolic 37–68
--- NOTE | 2016-09-29 01:00 | NUR ---
PT DOES NOT REPORT ANY HALLUCINATIONS AT THIS TIME. NO OTHER CHANGES IN STATUS. WILL CONTINUE TO MONITOR. VSS.
--- NOTE | 2016-09-29 03:00 | NUR ---
REASSESSMENT COMPLETED. SEE FLOWSHEET FOR FULL DETAILS. PT TEMP HAS NOW COME DOWN TO 38.0 C. VSS. WILL CONTINUE TO MONITOR
--- NOTE | 2016-09-29 05:00 | NUR ---
NO CHANGES IN PT STATUS AT THIS TIME. VSS. WILL CONTINUE TO MONITOR
[2016-09-29 06:08] LABS: HEMATOCRIT 28.7 % (36.0-48.0); HEMOGLOBIN 9.5 g/dL (12-16); MCH 32.9 pg (26.0-34.0); MCHC 33.1 g/dL (31.0-37.0); MCV 99.3 fL (80.0-100.0); MEAN PLATELET VOLUME 9.4 fL (7.4-10.4); RBC 2.89 10x6/uL (4.00-5.40); RDW 14.2 % (11.5-14.5); WBC 7.8 10x3/uL (4.8-10.8)
[2016-09-29 06:24] LABS: ALBUMIN 2.3 g/dL (3.4-5.0); ANION GAP 12.2 mmol/L (8-16); BILIRUBIN - TOTAL 0.33 mg/dL (0.2-1.3); CALCIUM 7.5 mg/dL (8.5-10.1); CARBON DIOXIDE 26.1 mmol/L (21.0-32.0); CREATININE - SERUM 0.9 mg/dL (0.6-1.3); POTASSIUM - SERUM 3.3 mmol/L (3.5-5.1); PROTEIN - SERUM 5.7 g/dL (6.4-8.2)
--- NOTE | 2016-09-29 19:00 | NUR ---
REPORT RECEIVED, SHIFT ASSESSMENT COMPLETE. PATIENT SLEEPING WHEN I ENTERED THE ROOM, AWOKE TO VOICE. STATED SHE WAS FEELING VERY GOOD. IS ALERT AND ORIENTED X4. BREATHING IS SHALLOW AND NONLABORED. CRACKLES CAN BE HEARD IN RUL,RML, AND ANDREW. CAN ALSO HEAR SUCTIONING FROM THE CHEST TUBE. STRONG COUGH PERFORMED WITHOUT PRODUCTIVITY. S1S2 NOTED WITH NSR ON MONITOR. CHEST TUBE X2 ON RIGHT LATERAL CHEST. SITE IS C/D/I. CONNECTED TO 20CM SUCTION. AIR LEAK NOTED IN ANTERIOR CT, NONE IN POSTERIOR. BARBER CATHETER DRAINING YELLOW URINE TO GRAVITY. ABDOULAYE'S AND SCD'S REMOVED FOR SKIN INTEGRITY ASSESSMENT AND REPLACED. PERIPHERAL PULSES +2 BILATERAL. RIGHT SUBCLAVIAN CL DRESSING IS C/D/I, BIOPATCH IN PLACE, SWAB CAPS IN USE. SEE IV FLOWSHEET FOR FLUIDS. CURRENTLY OFF BP SUPPORT DRUGS, VSS. FENTANYL INFUSING @ 4ML/HR PER EPIDURAL. SITE IS SECURED TO BACK AND C/D/I. PATIENT ABLE TO MOVE HANDS AND FEET. STATES SHE HAS NO PAIN. PATIENT HAS SLIGHT FEVER, COVERS REMOVED AND WILL REASSESS. DENIES NEED AT THIS TIME.
--- NOTE | 2016-09-29 21:00 | NUR ---
NO VISITORS AT THIS TIME. NIGHT MEDS GIVEN.
--- NOTE | 2016-09-29 23:00 | NUR ---
REASSESSMENT COMPLETE PER FLOWSHEET, SEE FOR DETAILS. NO ACUTE CHANGES. VSS. DENIES PAIN. WILL MONITOR.
--- NOTE | 2016-09-29 23:15 | NUR ---
ICE PACKS PLACED ON PATIENT FOR TEMP OF 101.3.
[2016-09-30] VITALS (45 sets, daily range): BP systolic 78–190; BP diastolic 40–96
--- NOTE | 2016-09-30 01:05 | NUR ---
PATIENT DENIES NEED AT THIS TIME, VSS. WILL MONITOR.
--- NOTE | 2016-09-30 03:10 | NUR ---
REASSESSMENT COMPLETE PER FLOWSHEET, SEE FOR DETAILS. VSS, PATIENT DENIES NEED AT THIS TIME. WILL MONITOR.
--- NOTE | 2016-09-30 05:33 | NUR ---
PATIENT PLACED ON 2L NC PER LOW O2 ON ABG.
[2016-09-30 06:06] LABS: HEMATOCRIT 28.8 % (36.0-48.0); HEMOGLOBIN 9.6 g/dL (12-16); MCH 32.9 pg (26.0-34.0); MCHC 33.3 g/dL (31.0-37.0); MCV 98.6 fL (80.0-100.0); MEAN PLATELET VOLUME 9.8 fL (7.4-10.4); RBC 2.92 10x6/uL (4.00-5.40); RDW 13.8 % (11.5-14.5); WBC 8.6 10x3/uL (4.8-10.8)
[2016-09-30 06:27] LABS: ALBUMIN 2.3 g/dL (3.4-5.0); ANION GAP 11.6 mmol/L (8-16); BILIRUBIN - TOTAL 0.24 mg/dL (0.2-1.3); CARBON DIOXIDE 26.8 mmol/L (21.0-32.0); CREATININE - SERUM 0.8 mg/dL (0.6-1.3); POTASSIUM - SERUM 3.4 mmol/L (3.5-5.1)
--- NOTE | 2016-09-30 06:45 | NUR ---
TEMP OF 99F PER CRITICORE. ICE PACKS REMOVED.
--- NOTE | 2016-09-30 08:20 | NUR ---
REPOSITIONED IN BED. VERY CHEERFUL THIS AM. NO NEEDS OR C/O.
--- NOTE | 2016-09-30 12:10 | NUR ---
FAMILY AT BEDSIDE. PT EATING LUNCH. NO CURRENT C/O.
--- NOTE | 2016-09-30 13:26 | OP ---
PATIENT NAME: CJ REDDY MEDICAL RECORD: [id number] :38 LOCATION:[facility].CV05 ADMISSION DATE:09/25/16 SURGEON: DANIEL WASHINGTON MD OPERATION DATE: 09/27/16 SURGEON: Daniel Washington M.D. ANESTHESIA: General endotracheal by Dr. Hartley. PROCEDURE: 1. Right thoracotomy with right upper lobe resection. 2. Right mediastinal lymphadenectomy. 3. Flexible fiberoptic bronchoscopy. PREOPERATIVE DIAGNOSIS: Squamous cell carcinoma right upper lobe. POSTOPERATIVE DIAGNOSIS: Squamous cell carcinoma right upper lobe. INDICATION FOR OPERATION: Carcinoma right upper lobe. FINDINGS OF OPERATION: Carcinoma right upper lobe. Multiple levels of lymph nodes were removed and sent for pathology. The level R7 node was heavily calcified. ESTIMATED BLOOD LOSS: Less than 150 mL. SPECIMENS: 1. Right upper lobe. 2. Lymph node level R10. 3. Lymph node level R4. 4. Lymph node level R7. 5. Lymph node level R9. 6. Lymph node level R8. PROCEDURE IN DETAIL: Flexible fiberoptic bronchoscopy demonstrated no endobronchial lesions at the beginning of the case. Good placement of the double lumen tube. Postprocedure, the right upper lobe stump was flush and well sealed. There was no blood or mucus in the tracheobronchial tree. After informed consent, adequate preoperative medication, and evaluation, the patient was brought to the operating room and placed on the table in the supine position. After induction of general endotracheal anesthesia and application of appropriate monitoring devices, the patient underwent flexible fiberoptic bronchoscopy and placement of a double lumen tube. The patient was then turned in a left lateral decubitus position protecting the pressure points and neurological structures. The right chest was prepped and draped in sterile field utilizing Betadine scrub, alcohol, and Betadine solution. Betadine impregnated drape was also used. An oblique incision was made over the fifth interspace and dissection carried down to the fascia. Hemostasis maintained with electrocautery. Latissimus was divided. The serratus was retracted anteriorly. The fifth interspace was opened, and the lung examined. There were dense adhesions in the major and minor fissure. The minor fissure was incomplete. There was no obvious metastasis to the chest wall or pleura. The hilum was circumferentially dissected. The branches to the right upper lobe were divided utilizing an Endo ANNMARIE stapler. The vessels to the upper lobe were divided at the bifurcation of the middle and upper lobe veins. Attention was then turned towards the distal descending pulmonary artery and dissection OPERATIVE REPORT [id number] CJ REDDY carried out anteriorly. There was one very small recurrent branch to the right upper lobe. This was doubly ligated with 5-0 Prolene suture. Attention was then turned toward the bronchus. The level 10 nodes were dissected with the specimen. An Endo ANNMARIE stapler was used to clamp the right upper lobe bronchus and the ventilation tested which was satisfactory. The bronchus was divided. The right upper lobe was examined and sent to pathology for permanent section. There appeared no disruption of the pleura, and the tumor was peripheral. Chest was irrigated with copious amounts of sterile water. The azygous vein and vena cava were mobilized, and the level 4 nodes were dissected free from the trachea utilizing a Harmonic scalpel. Then attention was turned towards the level 7 nodes which were dissected with Harmonic scalpel and removed. The 9 and 8 nodes were also sent for pathology. There were no lymph nodes found at the level 3 area. Chest was again irrigated with copious amounts of normal saline. There was no active bleeding. Two #36 chest tubes were brought in through the anterior and mid axillary line, one placed anteriorly superior and one posteriorly inferior. The chest was again irrigated. The lung was reinflated. The instrument counts and sponge counts were correct times two. Chest was closed in layers utilizing #2 Vicryl pericostal sutures, #1 Vicryl on the muscle layer, 2-0 Vicryl on the subcutaneous tissue, and skin approximated with 3-0 subcuticular Monocryl. Sterile dressings were applied. The patient was turned in a supine position. The patient then underwent flexible fiberoptic bronchoscopy with endobronchial mucus or lesions noted and a good seal of upper lobe bronchus. The patient was then awakened and transferred to the Cardiovascular-Intensive Care Unit in satisfactory condition. DANIEL WASHINGTON MD at 1326 CC: [id number] DICTATION DATE: 09/27/16 1400 POULTRY TRIMMER: OSCAR 09/28/16 1047 ADM IN [facility] [address] [place] [address]
--- NOTE | 2016-09-30 13:26 | HP ---
PATIENT: CJ REDDY MEDICAL RECORD: [id number] ACCOUNT: [id number] LOCATION:[place] [address] : 39 ADMISSION DATE: 09/25/16 HISTORY AND PHYSICAL EXAMINATION NameCJ REDDY (75yo, F) ID# [id number]. Date/Time09/06/2016 01:73DKAEN94 1940Service Dept.[facility] ClinicProviderEDPIPPA WASHINGTON MDInsuranceMed Primary: [place] ([place]) Insurance # : [id number] Referring Provider Name : GERHARD JOSHUA Employer Name : RETIRED Med Secondary: [place] (MEDICARE SUPPLEMENT) Insurance # : [id number] Policy/Group # : [id number] Referring Provider Name : GERHARD JOSHUA Employer Name : RETIRED Med Tertiary: [employer] (INDEMNITY) Insurance # : [id number] Policy/Group # : [id number] Referring Provider Name : GERHARD JOSHUA Employer Name : RETIRED Prescription: CMX - Member is eligible. Chief Complaint Lung mass RUL squamous cell CA Patient's Care Team Referring Provider (): GERHARD JOSHUA: [facility], [address] [place] [address] [id number], , Medical Oncologist: MANINDER WHITLEY MD: [address] [place] [id number], , Patient's Pharmacies [facility] ([facility]): [phone] [facility] [address] [facility] [phone], , Vitals BP:146/80 sitting R arm 09/06/2016 01:39 pm 158/86 sitting L arm 09/06/2016 01:41 pmBP Cuff Size:adult 09/06/2016 01:39 pm adult 09/06/2016 01:41 pmHR:72,reg 09/06/2016 01:41 pmHt:5 ft 3 in 09/06/2016 01:41 pmWt:158 lbs 09/06/2016 01:41 pmNotes:no breathing issues, has chronic anemia for which she takes B12 and occasional blood transfusions, she has fatigue she attributes to her anemia. She had pain in the right mid/upper ribs that Dr Joshua worked up, and she ended up with Dr Whitley and now us. 09/06/2016 01:43 pmBMI:28 09/06/2016 01:41 pmAllergies Reviewed Allergies CODEINEFLUPHENAZINETRAMADOLMedications Reviewed Medications [facility]- [facility] Wilsonatorvastatin 20 mg menhxn47/31/17 filledCaremarkbaclofen 10 mg /08/17 filledCaremarkbutalbital-acetaminophen- caffeine 50 mg-325 mg-40 mg /29/11 filledAETNAcarvedilol 12.5 mg tablet Take 1 tablet(s) twice a day by oral route.09/06/16 [facility] Wilsoncholecalciferol (vit D3)(bulk)09/06/16 [facility] Wilsoncitalopram 10 mg ezsntu96/05/17 filledCaremarkclopidogrel 75 mg /31/17 filledCaremarkcyanocobalamin (vit B-12) 1,000 mcg/mL injection kit Inject 1 mL every month by intramuscular route.09/06/16 [facility] WilsonEpitol 200 mg /15/17 filledCaremarkfamotidine 40 mg knespf82/03/17 filledCaremarkHemocyte-Plus 106 mg iron-1 mg capsule Take 1 capsule(s) every day by oral route.09/06/16 [facility] Wilsonisosorbide mononitrate ER 60 mg tablet,extended release 24 hr Take 1 tablet(s) every day by oral route.09/06/16 [facility] WilsonlevoFLOXacin 500 mg utjfmv02/10/17 filledCaremarklisinopril 20 mg /14/17 filledCaremarkmeclizine 25 mg tablet Take 1 tablet(s) 3 times a day by oral route.09/06/16 [facility] Wilsonnitroglycerin 0.[address] 1 tablet(s) by sublingual route.09/06/16 [facility] Wilsonpantoprazole 40 mg tablet,delayed gevjzzc31/05/17 filledCaremarksucralfate 1 gram /03/17 filledCaremarkwarfarin 3 mg fzjnsi51/15/17 filledCaremarkProblems HISTORY AND PHYSICAL [id number] CJ REDDY Reviewed Problems History of pulmonary embolus - Onset: 09/06/2016 History of placement of stent for coronary artery disease - Onset: 09/06/2016 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 - Onset: 07/14/2016, Right Acute bronchitis Headache Muscle weakness Arterial embolus and thrombosis Lung mass - Onset: 09/06/2016 Bronchitis Short of breath dressing/undressing Cough Family History Discussed Family History Non-contributory.Father- Malignant tumor of prostateSister- Malignant tumor of breastSocial History Discussed Social History Cardiology and General Smoking Status: Former smoker High Cholesterol: Y High blood pressure: Y Alcohol intake: None Occupation: retired Marital status: Caffeine intake: Occasional Surgical History Reviewed Surgical History Other - PTCA w/ stent x 3 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 on Coumdain Coronary Artery Disease: Y Depression: Y Heart Disease: Y - CAD High Blood Pressure: Y Hyperlipidemia: Y Warfarin Management: Y Documents for Discussion N/A Screening None recorded. HPI Lungs/Pleura Mass or Nodule Reported by patient. Symptoms: prior chest x-ray: abnormal; history of lung cancer Severity: improving Duration: 4 weeks Context: non-smoker; quit 30 years ago Location: upper right lobe squamous cell carcinoma right upper lobe ROS Patient reports no fever, no night sweats, no significant weight gain, no significant weight loss, and no exercise intolerance. She reports no dry eyes, no irritation, and no vision change. She reports no difficulty hearing and no ear pain. She reports no frequent nosebleeds and no nose/sinus problems. She reports no sore throat, no bleeding gums, no snoring, no dry mouth, no mouth ulcers, no oral abnormalities, and no teeth problems. She reports no chest pain, no arm pain on exertion, no shortness of silvana t h when walking, no shortness of breath when lying down, no palpitations, and no known heart murmur. She reports no cough, no wheezing, no shortness of breath, and no coughing up blood. She reports no abdominal pain, no vomiting, normal appetite, no diarrh e a, not vomiting blood, no nausea, and no constipation. She reports no incontinence, no difficulty urinating, no hematuria, and no increased frequency. She reports no muscle aches, no muscle weakness, no arthralgias/joint pain, no back pain, and no swellin g in the extremities. She reports no abnormal mole, no jaundice, and no rashes. She reports no loss of consciousness, no weakness, no numbness, no seizures, no dizziness, and no headaches. She reports no depression, no sleep disturbances, feeling safe in r HISTORY AND PHYSICAL [id number] WEST,ETNA J elationship, and no alcohol abuse. She reports no fatigue. She reports no swollen glands and no bruising. She reports no runny nose, no sinus pressure, no itching, no hives, and no frequent sneezing. ROS as noted in the HPI Physical Exam Patient is a 75-year-old female. Constitutional: General Appearance: well nourished, well developed, and appears stated age. Level of Distress: no acute distress. Ambulation: ambulating normally. ENMT: Nasal Mucosa: normal, no discharge, and pink and moist. Septum: not ma rkedly deformed. Turbinates: normal turbinate. Lips, Teeth, and Gums: normal lips, dentition, and gums. Oral Mucosa: no ulcer, mass, pallor, cyanosis, inflammation, swelling, rash, or leukoplakia and moist. Palate: normal hard palate and oropharynx: soft palate. Tongue: no erythema, lesions, enlargement, swelling, or deviation. Tonsils: no enlargement, lesions, mass (___ cm), or tonsil crypts. Posterior pharynx: no enlargement, erythema, exudate, ulcers, mass, or white patches. Neck: Neck: supple, trachea midline, no masses, and Full ROM. Thyroid: no enlargement or nodules and non-tender. Jugular Veins: normal jugular venous pressure and no siegel a waves present. Lungs: Respiratory effort: unlabored. Inspection: normal curve and chest wall expansion; no d eformity, tenderness, or swelling; and tactile fremitus present and equal on both sides. Auscultation: no wheezing, rales/crackles, or rhonchi and breath sounds normal. Percussion: no dullness, flatness, or hyperresonance. Cardiovascular: Precordial Exam: no heaves or precordial thrills and non displaced focal PMI. Heart Rate And Rhythm: normal heart rate and rhythm. Heart Sounds: no gallop, click, physiologically split S2, or pericardial friction rub and normal s1. Systolic Murmur: no systolic murmurs. D iastolic Murmur: no diastolic murmurs. Observation/Palpation of peripheral vascular system: no cyanosis, edema, varicosity changes, or palpable cord and normal dorsalis pedis and posterior tibialis. Abdomen: Inspection and Palpation: no bruit, tenderness, or masses and soft, non-distended, and normal aorta. Liver: non-tender and no hepatomegaly. Spleen: non-tender and no splenomegaly. Bowel Sounds: normal and no abdominal bruits. Lymphatic: no cervical LAD, axillary LAD, inguinal LAD, femoral LAD, supracla vicular LAD, or popliteal LAD. Musculoskeletal:: Motor Strength and Tone: normal bulk, tone, and motor strength. Gait and Station: normal gait, station, toe walk, heel walk, and tandem gait. Joints, Bones, and Muscles: no contractures, malalignment, tender ness, or bony abnormalities and normal movement of all extremities. Extremities: Inspection/Palpation of digits and nails: no clubbing, cyanosis, petechiae, infection, ischemia, or nodular lesions. Skin: Inspection and palpation: no rash, lesions, jaundice, ulcer, erythema, or induration and normal turgor. Neurologic: Mental Status/Orientation: oriented to person, place, problem/situation, and time. Mood/Affect: normal mood and affect. Assessment / Plan squamous cell carcinoma right upper lobe History of coronary artery stents HISTORY AND PHYSICAL [id number] CJ REDDY History of pulmonary embolus Chronic anticoagulation 1. Lung mass R91.8: Other nonspecific abnormal finding of lung field 2. 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 - Right C34.11: Malignant neoplasm of upper lobe, right bronchus or lung 3. History of placement of stent for coronary artery disease Z95.5: Presence of coronary angioplasty implant and graft 4. History of pulmonary embolus Z86.711: Personal history of pulmonary embolism Discussion Notes Pulmonary function test satisfactory for resection PET scan satisfactory for resection I have discussed her disease process with her and her in detail as well as the alternative methods of treatment we discussed right upper lobe resection carmina hutchinson the expected benefits and risks were discussed including bleeding, infection, stroke, , the imponderables. All of the above and wishes to proceed with planned surgery. We'll name bridge to surgery with heparin for her pulmonary embolus She will need to be of Plavix for a week prior to surgery will discuss with Dr. Cobos's office TATA WASHINGTON MD at 1326 CC: [id number] DICTATION DATE: 09/06/16 1330 BARREL RIFLER BUTTON: OSCAR 09/21/16 1105 ADM IN [facility] [address] [place] [address]
--- NOTE | 2016-09-30 14:46 | NUR ---
DOING LEG EXERCISES IN BED. DENIES PAIN OR C/O.
--- NOTE | 2016-09-30 19:10 | NUR ---
SHIFT ASSESSMENT COMPLETE, PATIENT RESTING IN BED WITH NO COMPLAINTS. ALERT AND ORIENTED. RR EVEN AND NONLABORED, CRACKLES HEARD WITH BREATH SOUNDS. CHEST TUBES ON RIGHT SIDE ARE COVERED WITH DRESSING AND C/D/I, DRAINING SEROSANG FLUID, CONNECTED TO 20CM SUCTION. AIRLEAK IN ANTERIOR TUBE. S1S2 WITH NORMAL SINUS ON MONITOR. BARBER DRAINING CLEAR YELLOW URINE TO GRAVITY. LOW GRADE FEVER PER CRITICORE, BLANKET REMOVED. ABDOULAYE'S AND SCD'S REMOVED FOR SKIN INTEGRITY CHECK. PERIPHERAL PULSES +2. EPIDURAL INFUSING IN UPPER BACK. SITE IS C/D/I. PATIENT PERFORMING IS AT THIS TIME AND ACHEIVED 750. TURN AND COUGHING ALSO DONE AT THIS TIME. VSS, WILL MONITOR.
--- NOTE | 2016-09-30 22:00 | NUR ---
NOTICED BLOOD PRESSURE HAD INCREASED, WENT TO CHECK ON PATIENT AND SHE STATED SHE WAS IN PAIN AND UNCOMFORTABLE. BOLUS OF PAIN MEDICINE GIVEN AND REPOSISTIONED FOR COMFORT. WILL MONITOR.
--- NOTE | 2016-09-30 22:15 | NUR ---
BLOOD PRESSURE HAS LOWERED, PATIENT STATES SHE FEELS BETTER.
--- NOTE | 2016-09-30 22:30 | NUR ---
DR WASHINGTON CALLED FOR ELEVATED BLOOD PRESSURE. ORDERS TO USE NITRO DRIP IF NEEDED.
[2016-10-01] VITALS (32 sets, daily range): BP systolic 99–170; BP diastolic 44–87
--- NOTE | 2016-10-01 01:00 | NUR ---
PATIENT RESTING IN BED WITH EYES CLOSED. OFF ALL BP DRIPS. VSS.
--- NOTE | 2016-10-01 03:00 | NUR ---
REASSESSMENT COMPLETE, SEE FLOWSHEET. VSS. PATIENT DENIES PAIN.
--- NOTE | 2016-10-01 04:00 | NUR ---
NITRO TURNED ON FOR BP, WILL MONITOR.
[2016-10-01 06:09] LABS: HEMATOCRIT 27.6 % (36.0-48.0); HEMOGLOBIN 9.1 g/dL (12-16); MCH 32.4 pg (26.0-34.0); MCV 98.2 fL (80.0-100.0); MEAN PLATELET VOLUME 9.8 fL (7.4-10.4); RBC 2.81 10x6/uL (4.00-5.40); RDW 13.5 % (11.5-14.5)
[2016-10-01 06:19] LABS: ANION GAP 9.1 mmol/L (8-16); CREATININE - SERUM 0.8 mg/dL (0.6-1.3); POTASSIUM - SERUM 3.1 mmol/L (3.5-5.1)
--- NOTE | 2016-10-01 12:40 | NUR ---
POSTERIOR CHEST TUBE DC'D PER DR. WASHINGTON. BARBER CATH DC'D PER ORDER. AWAITING ANESTHESIA FOR EPIDURAL DC AND PHYSCIAL THERAPY.
--- NOTE | 2016-10-01 13:00 | NUR ---
EPIDURAL DC'D PER ANESTHESIA.
--- NOTE | 2016-10-01 13:49 | NUR ---
UP TO CHAIR PER P.T. LINENS CHANGED. HYGIENE WIPES PROVIDED.
--- NOTE | 2016-10-01 16:27 | NUR ---
REMAINS UP TO CHAIR. NO CURRENT C/O.
--- NOTE | 2016-10-01 18:05 | NUR ---
BATH AND LINEN CHANGE COMPLETED. ORAL CARE GIVEN. TEDS AND SCD'S REMOVED FOR 30 MINUTES AND REPLACED. PT TOILETED. URINATED TIMES 1 AFTER BARBER DC.
--- NOTE | 2016-10-01 19:00 | NUR ---
Received patient resting in bed with eyes open, assessment completed per flowsheet. Patient AO x4, calm and cooperative. Eyes PERRLA @ 4mm with brisk response, patient wears glasses. S1/S2 noted NSR on telemetry with slight T wave elevation noted, rhythmic and regular. Breathing is slightly shallow on 2L via NC with O2 sat 98%, crackles noted bilateral upper and mid with diminished lower. Anterior Chest tube x1 noted R lateral chest to 20cm suction with slight bubbling noted in chamber, dressing reinforced CDI with no bleeding/drainage noted. Abdomen is soft and flat, nontender to palation with bowel sounds active x4. Patient ambulates to commode with assistance, 210ml concentrated yellow urine noted. Full ROM all extremities with weakness noted, all pulses palpable with cap refill < 3 sec. L Subclavian CVL noted, saline locked with dressing CDI. ABDOULAYE hose/SCD in use. Old Epidural site dressing CDI, no drainage/bleeding noted. Patient states Intermittent aching pain R shoulder/Lateral chest 5/10, PRN medication given and will reassess. No further needs at this time, all VSS and will continue to monitor.
--- NOTE | 2016-10-01 21:48 | NUR ---
Patient c/o pain 4/10 R shoulder, given PRN tylenol for pain. Patient immediately complained on nausea and vomited up 30ml yellow brown emesis. Washed patient face and provided cool washcloth, no further needs at this time, all VSS and will continue to monitor.
--- NOTE | 2016-10-01 21:50 | NUR ---
PRN medication given for nausea, no further needs and will reassess.
--- NOTE | 2016-10-01 22:54 | NUR ---
Patient assisted to commode, 160ml concentrated yellow urin noted. Back to bed, no further needs at this time.
--- NOTE | 2016-10-01 23:00 | NUR ---
Reassessment completed per flowsheet, patient resting in bed with eyes closed. S1/S2 noted Sinus Yefri on telemetry with HR 59, rhythmic and regular. Breathing is even and unlabored on 2L via NC with O2 sat 99%, crackles noted bilateral upper and mid with diminished lower. CT x1 Anterior R lateral chest to 20cm suction, dressing CDI. All pulses palpable with cap refill < 3 sec, skin is warm/dry to touch. Denies pain or other needs at this time, all VSS and will continue to monitor.
[2016-10-02] VITALS (32 sets, daily range): BP systolic 112–201; BP diastolic 46–99
--- NOTE | 2016-10-02 02:32 | NUR ---
Patient resting in bed with eyes closed, no s/s of distress. Repositioned for comfort, no further needs and will continue to monitor.
--- NOTE | 2016-10-02 02:33 | NUR ---
Patient assisted onto bedpen per request, 380ml clear yellow urine collected. Linen change performed, tolerated well with no further needs at this time. Bj continue to monitor.
--- NOTE | 2016-10-02 03:00 | NUR ---
Reassessment completed per flowsheet, patient resting in bed with eyes open. Toya RT at bedside for IS, patient performed 500. S1/S2 noted NSR on telemetry with HR 69, rhythmic and regular. Breathing is slightly shallow on 2L via NC with O2 sat 99%, Vent settings unchanged from previous. All pulses palpable with cap refill < 3 sec, denies pain or other needs at this time. All VSS and will continue to monitor.
--- NOTE | 2016-10-02 03:29 | NUR ---
Patient assisted onto bedpan per request, 500ml clear yellow urine collected.
--- NOTE | 2016-10-02 04:10 | NUR ---
Patient assisted onto bedpan per request, 325ml clear yellow urine collected.
--- NOTE | 2016-10-02 04:35 | NUR ---
Patient SBP trending upward, maintaining above 190. Nitro drip restared at 5mcg/kg/min, will titrate to maintain SBP 90-140.
--- NOTE | 2016-10-02 05:15 | NUR ---
Patient SBP > 160, Nitro drip increased to 7 mcg/kg/min. Will continue to monitor.
[2016-10-02 05:17] LABS: BASOPHILS 0.1 % (0-2); EOSINOPHILS 2.7 % (0-7); HEMATOCRIT 29.2 % (36.0-48.0); IMMATURE GRANULOCYTES 0.5 % (0-5); LYMPHOCYTES 13.2 % (15-50); MCH 33.2 pg (26.0-34.0); MCHC 34.2 g/dL (31.0-37.0); MEAN PLATELET VOLUME 9.8 fL (7.4-10.4); MONOCYTES 11.3 % (2-11); NEUTROPHILS 72.2 % (40-80); PLATELET COUNT 265 10x3/uL (130-400); RBC 3.01 10x6/uL (4.00-5.40); RDW 13.5 % (11.5-14.5); WBC 7.5 10x3/uL (4.8-10.8)
--- NOTE | 2016-10-02 05:30 | NUR ---
Patient SBP 180, Nitro increased to 10 mcg/kg/min. Will continue to monitor.
[2016-10-02 05:37] LABS: CALC OSMOLALITY 280 mosm/kg (275-300); CALCIUM 8.3 mg/dL (8.5-10.1); CARBON DIOXIDE 28.5 mmol/L (21.0-32.0); CHLORIDE - SERUM 104 mmol/L (98-107); GLUCOSE 119 mg/dL (74-106); SODIUM 141 mmol/L (136-145); UREA NITROGEN 9 mg/dL (7-18)
[2016-10-02 05:40] LABS: INR 1.15 (0.85-1.17); PROTIME 14.6 SECONDS (11.6-15.0)
[2016-10-02 05:49] LABS: CREATININE - SERUM 0.5 mg/dL (0.6-1.3); POTASSIUM - SERUM 2.7 mmol/L (3.5-5.1); eGFR NON AFRICAN AMERICAN > 90 mL/min (90-120)
--- NOTE | 2016-10-02 06:00 | NUR ---
Patient SBP > 160, Nitroglycerin drip increased to 15 mcg/kg/min. Will continue to monitor.
--- NOTE | 2016-10-02 06:30 | NUR ---
Called Dr Merida with critical potassium, orders to give 40 MeQ over 3 hours. Read back and confirmed.
--- NOTE | 2016-10-02 08:04 | NUR ---
PT SET UP TO CHAIR WITH ASSIST. INCENTIVE SPIROMETRY PERFORMED. BREAKFAST TRAY PROVIDED.
--- NOTE | 2016-10-02 09:15 | NUR ---
ASSISTED PT TO BEDSIDE COMMODE FOR BOWEL MOVEMENT. IS VERY WEAK AND UNSTEADY.
--- NOTE | 2016-10-02 10:00 | NUR ---
PT HAS PHYSICAL THERAPY ORDERS. GRANT CARDENAS RN INSTRUCTED TO TAKE PT CHEST TUBE OFF SUCTION FOR WALKING, AND THE PLACE BACK ON ONCE THERAPY COMPLETE.
--- NOTE | 2016-10-02 10:16 | NUR ---
PT SITTING UP IN CHAIR AT THIS TIME. ASKING TO GO BACK TO BED. LET HER KNOW WE WOULD LIKE FOR HER TO STAY UP IN CHAIR UNTIL AT LEAST AFTER LUNCH. WILL ALSO BE GETTING UP WITH PHYSICAL THERAPY SHORTLY. AGREED TO STAY IN CHAIR UNTIL AFTER LUNCH.
--- NOTE | 2016-10-02 12:18 | NUR ---
PT HAS BEEN UP TO WALK WITH PHYSICAL THERAPY. WAS ABLE TO WALK WITH WALKER OUT INTO THE JETER OUTSIDE HER ROOM BEFORE BECOMING TIRED. ASSISTED BACK TO CHAIR AND HOOKED BACK UP TO SUCTION AT CHEST TUBE. O2 SATS 96% ON ROOM AIR. NO DISTRESS. LUNCH TRAY HAS BEEN PROVIDED AT THIS TIME. FAMILY AT BEDSIDE FOR VISITATION.
--- NOTE | 2016-10-02 12:47 | NUR ---
PT ASSISTED UP TO BEDSIDE COMMODE
--- NOTE | 2016-10-02 14:41 | NUR ---
PT UP WALKING WITH PHYSICAL THERAPY. NO DISTRESS
--- NOTE | 2016-10-02 14:58 | NUR ---
Nutrition follow-up: Diet: regular PO intake ~50% of meals labs reviewed Wt: 162# Walking with pt. RDN following.
--- NOTE | 2016-10-02 16:55 | NUR ---
PT ASSISTED ON TO BEDPAN. URINATED. WAS UNABLE TO HOLD BLADDER TO GET UP TO BEDSIDE COMMODE. THEN ASSISTED TO CHAIR FOR DINNER.
--- NOTE | 2016-10-02 19:00 | NUR ---
Received patient sitting up in chair at bedside, assessment completed per flowsheet. Patient AO x4, calm and cooperative. Eyes PERRLA @ 4mm with brisk response, patient wears glasses. S1/S2 noted NSR on telemetry with HR 75, rhythmic and regular. Breathing is even and unlabored on room air with O2 sat 98%, Crackles noted bilateral upper and mid with diminished lower. Abdomen is round and soft with bowel sounds active x4, non-tender to palpation. Patient uses bathroom commode, no difficulties reported. Full ROM all extremities with weakness noted, all pulses palpable with cap refill < 3 sec. R subclavian noted, flushes easily but no return. Assisted patient back to bed, repositioned for comfort. C/O intermittent aching pain 5/10 in R shoulder/R lateral chest, PRN pain medication given. Denies other needs at this time, all VSS and will continue to monitor.
--- NOTE | 2016-10-02 21:00 | NUR ---
No visitors at this time, all HS meds given without difficulty. Patient repositioned for comfort, no further needs at this time. All VSS and will continue to monitor.
--- NOTE | 2016-10-02 22:30 | NUR ---
Patient assisted onto bedpan at patient request, 250ml clear yellow urine collected.
--- NOTE | 2016-10-02 23:00 | NUR ---
Reassessment completed per flowsheet, patient resting in bed with eyes closed. Patient is AO x4, calm and cooperative. S1/S2 noted NSR on telemetry with HR 66, rhythmic and regular. Breathing is slightly shallow on room air with O2 sat 97%. R lateral CT x1 secured with dressing CDI, 20cm suction with small leak noted in chamber. All pulses palpable with cap refill < 3 sec, denies pain or other needs at this time. All VSS and will continue to monitor.
[2016-10-03] VITALS (25 sets, daily range): BP systolic 108–166; BP diastolic 52–78
--- NOTE | 2016-10-03 01:00 | NUR ---
Patient resting in bed with eyes closed, breathing is slightly shallow on room air. Patient states she "feels better tonight" states some discomfort in R lateral chest. Repositioned for comfort and PRN pain medication provided, no further needs at this time.
--- NOTE | 2016-10-03 02:56 | NUR ---
Reassessment completed per flowsheet, patient resting in bed with eyes closed. Patient calm and cooperative, c/o discomfort in R shoulder/R lateral chest. S1/S2 noted NSR on telemetry with HR 60, rhythmic and regular. Breathing is slightly shallow on room air with O2 sat 94%, crackles noted bilateral upper and mid with diminished lower. R lateral chest CT x1 to 20cm H2O suction, small serosanguinous drainage noted in collection. All pulses palpable with cap refill < 3 sec, skin is warm to touch. Denies pain or other needs at this time, all VSS and will continue to monitor.
--- NOTE | 2016-10-03 03:15 | NUR ---
Patient assisted onto bedpan per request, 350ml clear yellow urine collected. No further needs at this time, all VSS and will continue to monitor.
--- NOTE | 2016-10-03 05:00 | NUR ---
Patient resting in bed with eyes closed, breathing is even and unlabored on room air. Patient denies pain or other needs at this time, all VSS and will continue to monitor.
--- NOTE | 2016-10-03 06:20 | NUR ---
Patient assisted onto bedpan at patient request, 400ml clear yellow urine collected. PRN pain medication given, will reassess.
[2016-10-03 06:30] LABS: HEMATOCRIT 28.9 % (36.0-48.0); HEMOGLOBIN 9.7 g/dL (12-16); MCH 32.6 pg (26.0-34.0); MCHC 33.6 g/dL (31.0-37.0); MEAN PLATELET VOLUME 9.8 fL (7.4-10.4); RBC 2.98 10x6/uL (4.00-5.40); RDW 13.7 % (11.5-14.5); WBC 6.6 10x3/uL (4.8-10.8)
[2016-10-03 06:44] LABS: INR 1.17 (0.85-1.17); PROTIME 14.8 SECONDS (11.6-15.0)
[2016-10-03 06:49] LABS: CALC OSMOLALITY 286 mosm/kg (275-300); CALCIUM 8.3 mg/dL (8.5-10.1); CARBON DIOXIDE 29.4 mmol/L (21.0-32.0); CHLORIDE - SERUM 107 mmol/L (98-107); GLUCOSE 108 mg/dL (74-106); PHOSPHOROUS 2.5 mg/dL (2.5-4.9); SODIUM 144 mmol/L (136-145); UREA NITROGEN 11 mg/dL (7-18)
[2016-10-03 06:51] LABS: CREATININE - SERUM 0.7 mg/dL (0.6-1.3); eGFR NON AFRICAN AMERICAN 86 mL/min (90-120)
--- NOTE | 2016-10-03 07:10 | NUR ---
Dr Merida notified about Potassium value 3.0, he will deal with it when arrives.
--- NOTE | 2016-10-03 08:31 | NUR ---
PT ASSISTED UP TO BEDSIDE COMMODE. VERY UNSTEADY AND STIFF. NOW IN CHAIR AT BEDSIDE. MORNING MEDICATIONS PROVIDED WELL BREAKFAST TRAY. AWAITING CHEST XRAY. PT TO BE SITTING UP PER DR WASHINGTON
--- NOTE | 2016-10-03 10:57 | NUR ---
PT UP IN CHAIR AT BEDSIDE. ON TELEPHONE. NO DISTRESS NOTED.
--- NOTE | 2016-10-03 11:00 | NUR ---
AWAITING PHARMACY TO RELOAD K-DUR TO PATIENT PROFILE. NOT SHOWING UP IN OUR MEDS AVAILABLE FOR THE PATIENT. HAVE PREVIOUSLY CALLED TO HAVE FIXED. THEY RE-RAN PROFILE TO GET MED ON LIST, BUT IS STILL NOT THERE.
--- NOTE | 2016-10-03 12:22 | NUR ---
PT SITTING UP IN CHAIR AT BEDSIDE FOR LUNCH AT BEDSIDE AT THIS TIME. PT HAS BEEN ASSISTED UP TO BEDSIDE COMMODE FOR BOWEL MOVEMENT.
--- NOTE | 2016-10-03 12:59 | NUR ---
PT ASKING TO GO BACK TO BED. ASKED HER TO GET IN HER AFTERNOON PHYSICAL THERAPY SESSION BEFORE GOING BACK TO BED.
--- NOTE | 2016-10-03 13:12 | NUR ---
HAS WALKED WITH PHYSICAL THERAPY. NOW ON BEDSIDE COMMODE.
--- NOTE | 2016-10-03 18:12 | NUR ---
PT SITTING UP IN CHAIR AT THIS TIME. FAMILY AT BEDSIDE FOR 6PM VISITATION.
--- NOTE | 2016-10-03 18:53 | NUR ---
COMPLETE BED BATH AND HAIR WASH PROVIDED. COMPLETE LINEN CHANGE. ORAL CARE DONE.
--- NOTE | 2016-10-03 19:30 | NUR ---
Assessment complete. See flowsheet. Pt awake upon entrance into room with VSS. Pt alert, oriented x4 and following all conversation and commands with no neuro deficits. Pt moving upper extremities with 4/5 strength and lower extremities with 3/5 strength and no edema noted. Pupils size 3 bilaterally ERRLA. Respirations shallow and unlabored. Pt receiving O2 @ 2L NC. Lung sounds present crackles to all lyons. Pt encouraged to deep breathe and cough with strong productive cough producing santiago sputum to tissue. Right lateral chest incision site CDI with dressing secure. Anterior chest tube insertion site to right lateral chest dressing changed and secured. Chest tube secure to 10cm suction retrieving serosanguanous fluid with small intermittent leak noted. HR SR with S1S2 auscultated. All peripheral pulses +2 with capillary refill <3 seconds. Right DLSC CVL site CDI saline locked. Abdomen soft with BS present to all quadrants. Temp 99.3F orally. ABDOULAYE hoses and SCDs secure. Pt denies pain at this time and pulled up in bed to position to left side. HOB @ 20 degrees with arms and heels bridged. Fresh ice water provided per request. Call xena gilman bedside table within reach. CPOC.
--- NOTE | 2016-10-03 21:30 | NUR ---
PM medications administered. See MAY. VSS. Ibuprofen administered for pain to back. Pt helped to reposition for comfort.
--- NOTE | 2016-10-03 22:20 | NUR ---
Pt helped onto bedpan for void 350cc yellow, clear urine. Afterwards pt pulled up in bed and helped to reposition for comfort. Call light and bedside table remain within pt reach. CPOC.
--- NOTE | 2016-10-03 23:30 | NUR ---
Reassessment complete. See flowsheet. Pt awake with VSS. NO neuro changes to note. O2 remains @ 2L NC. Respirations shallow and unlabored. Lung sounds continue to present crackles to all lyons. Coughing encouraged. SPO2 96%. Chest tube secure with no changes to note. HR SR. BS +. CVL site remains CDI; saline locked. Pt confortable and refuses repositioning at this time. Call light and bedside table remain within pt reach. CPOC.
[2016-10-04] VITALS (22 sets, daily range): BP systolic 114–175; BP diastolic 45–70
--- NOTE | 2016-10-04 01:30 | NUR ---
Pt resting quietly with VSS. NO s/s pain or distress.
--- NOTE | 2016-10-04 03:30 | NUR ---
Reassessment complete. See flowsheet. Pt resting and awakens with no neuro changes to note. VSS. Pt c/o pain. Will provide medication. See MAR. No other changes to note. Call light and bedside table remain within reach. CPOC.
--- NOTE | 2016-10-04 05:30 | NUR ---
Pt resting with VSS. NO s/s pain or distress.
[2016-10-04 05:51] LABS: HEMATOCRIT 28.2 % (36.0-48.0); HEMOGLOBIN 9.4 g/dL (12-16); MCH 32.5 pg (26.0-34.0); MCHC 33.3 g/dL (31.0-37.0); MCV 97.6 fL (80.0-100.0); MEAN PLATELET VOLUME 9.6 fL (7.4-10.4); RBC 2.89 10x6/uL (4.00-5.40); WBC 6.3 10x3/uL (4.8-10.8)
[2016-10-04 06:09] LABS: INR 1.26 (0.85-1.17); PROTIME 15.7 SECONDS (11.6-15.0)
[2016-10-04 06:12] LABS: CALC OSMOLALITY 286 mosm/kg (275-300); CALCIUM 7.9 mg/dL (8.5-10.1); CARBON DIOXIDE 26.9 mmol/L (21.0-32.0); CHLORIDE - SERUM 109 mmol/L (98-107); CREATININE - SERUM 0.6 mg/dL (0.6-1.3); GLUCOSE 110 mg/dL (74-106); MAGNESIUM - SERUM 1.8 mg/dL (1.8-2.4); PHOSPHOROUS 2.3 mg/dL (2.5-4.9); POTASSIUM - SERUM 3.4 mmol/L (3.5-5.1); SODIUM 144 mmol/L (136-145); UREA NITROGEN 10 mg/dL (7-18); eGFR NON AFRICAN AMERICAN > 90 mL/min (90-120)
--- NOTE | 2016-10-04 07:15 | NUR ---
PT ASSISTED ON TO BEDPAN. UNABLE TO HOLD FOR BEDSIDE COMMODE. LESS STIFF MOVING THIS MORNING.
--- NOTE | 2016-10-04 09:21 | NUR ---
NUTRITION MONITORING & EVAL CHART REVIEWED. DIET ADVANCED TO REG WITH ONLY ~10% INTAKE BREAKFAST. WILL CONTINUE TO PROVIDE DIET, MONITOR PO INTAKE. RD FOLLOWING
--- NOTE | 2016-10-04 10:09 | NUR ---
PT UP TO WALK WITH PHYSICAL THERAPY
--- NOTE | 2016-10-04 13:35 | NUR ---
PT UP WALKING WITH PHYSICAL THERAPY.
--- NOTE | 2016-10-04 17:45 | NUR ---
ALL NEW LINENS PROVIDED. PT REQUESTED BATH WIPES TO BATHE. HAS BEEN UP TO BEDSIDE COMMODE. URINATED AND BOWEL MOVEMENT #2 FOR TODAY. ABLE TO TRANSFER FROM TOILET TO CHAIR UNASSISTED.
--- NOTE | 2016-10-04 18:15 | NUR ---
CENTRAL LINE DRESSING TO RIGHT SUBCLAVIAN CHANGED. HAS BRUISING AT INSERTION SITE. NO SIGNS OF INFECTION.
--- NOTE | 2016-10-04 21:51 | NUR ---
PT REPOSITIONED IN BED FOR COMFORT. PARTIAL LINEN CHANGE COMPLETE.
--- NOTE | 2016-10-04 23:20 | NUR ---
PT C/O PAIN FROM CHEST TUBE INCISION SITE. RATES PAIN 8/10 AT THIS TIME. WILL GIVE PRN PAIN MEDICATION. PT REPOSITIONED TO R SIDE.
[2016-10-05] VITALS (33 sets, daily range): BP systolic 98–185; BP diastolic 53–90
--- NOTE | 2016-10-05 01:45 | NUR ---
PRN PAIN MEDICATION GIVEN UPON REQUEST. RATES PAIN 4/10 WHILE COUGHING OR REPOSITIONING. REPOSITIONED IN BED TO R SIDE. STATES SHE IS COMFORTABLE. DENIES FURTHER NEEDS AT THIS TIME.
--- NOTE | 2016-10-05 02:20 | NUR ---
PT STATES HER PAIN IS BETTER CONTROLLED, CLAIMS SHE IS "JUST SORE NOW AND THEN" REPOSITIONED FOR COMFORT. DENIES FURTHER NEEDS AT THIS TIME.
--- NOTE | 2016-10-05 03:00 | NUR ---
UNABLE TO MAINTAIN SBP BELOW 160. NITRO GTT INITIATED PER ORDER. WILL TITRATE TO MAINTAIN SBP WITHIN GIVEN PARAMETERS.
--- NOTE | 2016-10-05 06:26 | NUR ---
NITRO GTT OFF
[2016-10-05 06:30] LABS: INR 1.33 (0.85-1.17); PROTIME 16.4 SECONDS (11.6-15.0)
[2016-10-05 06:33] LABS: CALC OSMOLALITY 287 mosm/kg (275-300); CARBON DIOXIDE 27.8 mmol/L (21.0-32.0); CHLORIDE - SERUM 110 mmol/L (98-107); CREATININE - SERUM 0.7 mg/dL (0.6-1.3); GLUCOSE 101 mg/dL (74-106); PHOSPHOROUS 3.5 mg/dL (2.5-4.9); POTASSIUM - SERUM 4.1 mmol/L (3.5-5.1); SODIUM 145 mmol/L (136-145); UREA NITROGEN 10 mg/dL (7-18); eGFR NON AFRICAN AMERICAN 86 mL/min (90-120)
--- NOTE | 2016-10-05 08:00 | NUR ---
SHIFT ASSESSMENT VIA FLOWSHEET, SEE FOR DETAILS.
--- NOTE | 2016-10-05 09:00 | NUR ---
AT BEDSIDE, UPDATE PROVIDED. VSS.
--- NOTE | 2016-10-05 11:30 | NUR ---
REASSESSMENT VIA FLOWSHEET, SEE FOR DETAILS.
--- NOTE | 2016-10-05 15:30 | NUR ---
REASSESSMENT VIA FLOWSHEET, SEE FOR DETAILS.
--- NOTE | 2016-10-05 17:30 | NUR ---
PT IN CHAIR AT BEDSIDE. VSS. VOICES NO ADDITIONAL NEEDS AT THIS TIME. CALL LIGHT WITHIN REACH.
--- NOTE | 2016-10-05 19:00 | NUR ---
1900: Pt resting on left side with eyes open. Pupils KANIKA+ bilat. SMCx4=bilat appraisal technician with commands. Pt moves x4 extrem vs gravity. Pt c/o pain and points to right lateral chest wall. Pt denies nausea, tingling, numbness. Pt breathing 022LNC with [id number] with SPO2 95%. Lungs with crackles heard in upper LFs with decreased bases bilat. MMP and no cyanosis noted. Right lateral chest wall chest tube taped intact and connected to Atrium collection system at 10mmHg sx with yellow liquid drainage. Air leak detected in collection system chamber, but no air heard from dressing site. S1S2 regular SR on CM. PPPx4=bilat. ABD soft NT BSx4 active. Pt denies difficulty with elimination. All monitors and alarms on.
--- NOTE | 2016-10-05 20:30 | NUR ---
2030: Pt SBP showing >190mmHG at this time. Pt NIBP set on Q5min. Pt c/o pain and being uncomfortable. Pt repositioned and Rx admin at this time. Retake of NIBP 160's. NIBP set to Q30 min at this time.
[2016-10-06] VITALS (23 sets, daily range): BP systolic 120–204; BP diastolic 60–79
--- NOTE | 2016-10-06 | NUR ---
0000: Pt placed on bedpan with minimal assist. Pt urinated 400cc of yellow urine. Pt repositioned for comfort at this time.
--- NOTE | 2016-10-06 01:15 | NUR ---
0115: Pt remains SR 60's on CM with SBP 160's. Pt remains 022LNC with RR 20x with SPO2 93%. No change in CT output.
--- NOTE | 2016-10-06 03:00 | NUR ---
0300: Pt resting with eyes closed at this time. Pt remains SR 60's with SBP 150's at this time. No change in IVF/UOP.
--- NOTE | 2016-10-06 04:30 | NUR ---
0430: Pt resting with eyes closed at this time. Easily arousable to verbal. Pt without c/o at this time. Pt remains SR 60's on CM with SBP 150's. Pt breathing RA RR16x with SPO2 96%. Chest tube without change.
[2016-10-06 06:01] LABS: BASOPHILS 0.3 % (0-2); EOSINOPHILS 7.3 % (0-7); HEMATOCRIT 29.7 % (36.0-48.0); HEMOGLOBIN 9.8 g/dL (12-16); IMMATURE GRANULOCYTES 1.6 % (0-5); LYMPHOCYTES 19.2 % (15-50); MCH 32.9 pg (26.0-34.0); MEAN PLATELET VOLUME 9.6 fL (7.4-10.4); MONOCYTES 10.2 % (2-11); NEUTROPHILS 61.4 % (40-80); PLATELET COUNT 398 10x3/uL (130-400); RBC 2.98 10x6/uL (4.00-5.40); RDW 14.6 % (11.5-14.5); WBC 6.4 10x3/uL (4.8-10.8)
[2016-10-06 06:06] LABS: MCV 99.7 fL (80.0-100.0)
[2016-10-06 06:09] LABS: ANION GAP 11.9 mmol/L (8-16); CALCIUM 7.9 mg/dL (8.5-10.1); CARBON DIOXIDE 27.4 mmol/L (21.0-32.0); CREATININE - SERUM 0.8 mg/dL (0.6-1.3); POTASSIUM - SERUM 4.3 mmol/L (3.5-5.1)
[2016-10-06 06:11] LABS: INR 1.5 (0.85-1.17)
--- NOTE | 2016-10-06 06:40 | NUR ---
0640: Pt placed on bedpan with minimal assistance. Pt urinated 300cc yellow UOP. Pt remains SR 60's with SBP 160's. Pt remains RA RR15x with SPO2 95%.
--- NOTE | 2016-10-06 10:42 | NUR ---
Nutrition Follow Up: Chart reviewed. Pt is eating 59% meal avg on a regular diet. Wt stable. +BM 10/05/16. Labs reviewed. Meds noted. Rec continue current diet. RD following.
--- NOTE | 2016-10-06 17:30 | NUR ---
BED BATH SET UP. PT STATES SHE WAS SCRATCHING INCISION WITH COMB.
[2016-10-07] VITALS (24 sets, daily range): BP systolic 108–204; BP diastolic 43–96
--- NOTE | 2016-10-07 00:15 | NUR ---
0015: Pt repositioned for comfort on left side. Pt remains SR on CM 60's with SBP 150's at this time. Right lateral cchest wall chest taped intact to atrium collection system with no sx. Small amount yellow liquid drainage noted. <20cc at this time.
--- NOTE | 2016-10-07 03:30 | NUR ---
0330: Pt on bedpan with minimal assist. Pt urinated 300cc of yellow urine. Pt repositioned for comfort. Pt c/o headache and Rx admin as per EMAR. Pt remains SR 60's on CM with SBP elevated with stimulation 170-180. Chest tube output approx 20cc total of yellow liquid output.
[2016-10-07 06:19] LABS: BASOPHILS 0.8 % (0-2); EOSINOPHILS 7.2 % (0-7); HEMATOCRIT 31.2 % (36.0-48.0); HEMOGLOBIN 10.2 g/dL (12-16); IMMATURE GRANULOCYTES 0.9 % (0-5); MCH 32.6 pg (26.0-34.0); MCHC 32.7 g/dL (31.0-37.0); MCV 99.7 fL (80.0-100.0); MEAN PLATELET VOLUME 9.5 fL (7.4-10.4); MONOCYTES 8.4 % (2-11); NEUTROPHILS 63.7 % (40-80); PLATELET COUNT 409 10x3/uL (130-400); RBC 3.13 10x6/uL (4.00-5.40); RDW 14.6 % (11.5-14.5); WBC 6.4 10x3/uL (4.8-10.8)
[2016-10-07 06:38] LABS: INR 1.64 (0.85-1.17); PROTIME 19.4 SECONDS (11.6-15.0)
[2016-10-07 06:45] LABS: CALCIUM 8.2 mg/dL (8.5-10.1); CREATININE - SERUM 0.8 mg/dL (0.6-1.3)
--- NOTE | 2016-10-07 06:50 | NUR ---
0650: Pt up OOB to bathroom and back to chair. Pt SBP increased with stimulation. Pt remains SR 60's on CM. Pt c/o pain. Pt states her head hurts and really c/o generalized pain.
--- NOTE | 2016-10-07 07:15 | NUR ---
UP IN CHAIR PREPARED FOR BREAKFAST.
--- NOTE | 2016-10-07 08:00 | NUR ---
ORAL CARE DONE WITH PERIDEX
--- NOTE | 2016-10-07 17:37 | NUR ---
PT AMBULATED TO BATHROOM. BACK TO BED. CHEST TUBE DRESSING CHANGED. NO CURRENT C/O C/L IN REACH.
--- NOTE | 2016-10-07 20:00 | NUR ---
1999: Pt remains in bed with eyes closed. Open to verbal and oriented x3. Pt moves x4 extrem vs gravity. Pt requested bed rendon. Pt urinated 300cc of yellow UOP. Partial linen change completed. Pt remains SR 60's on CM, Room air with SPO2 95% and [id number]. Right lateral chest wall CT to atrium collection system with small amount of yellow liquid drainage. No sx-gravity drain at this time. Air leak noted. TEDs off for skin assessment and pt request off. SCDs remain bilaterally.
--- NOTE | 2016-10-07 23:00 | NUR ---
2300: Pt assisted up to bathroom with minimal assist. Pt gait steady. Pt urinated in commode and returned to bed. All monitors reestablished and alarms on. Pt remains SR on CM 60's. Pt remains on RA RR16x with SPO2 94%
[2016-10-08] VITALS (23 sets, daily range): BP systolic 97–169; BP diastolic 49–77
--- NOTE | 2016-10-08 02:00 | NUR ---
0200: No change in RESP/CV/NV status. No change in IVF/UOP. Pt remains resting in bed with eyes closed at this itme.
[2016-10-08 06:06] LABS: BASOPHILS 0.6 % (0-2); EOSINOPHILS 7.1 % (0-7); HEMATOCRIT 30.6 % (36.0-48.0); HEMOGLOBIN 9.9 g/dL (12-16); IMMATURE GRANULOCYTES 0.8 % (0-5); LYMPHOCYTES 19.3 % (15-50); MCH 32.4 pg (26.0-34.0); MCHC 32.4 g/dL (31.0-37.0); MEAN PLATELET VOLUME 9.5 fL (7.4-10.4); MONOCYTES 8.3 % (2-11); NEUTROPHILS 63.9 % (40-80); PLATELET COUNT 445 10x3/uL (130-400); RBC 3.06 10x6/uL (4.00-5.40); RDW 14.3 % (11.5-14.5); WBC 6.2 10x3/uL (4.8-10.8)
--- NOTE | 2016-10-08 06:10 | NUR ---
0610: Pt resting with eyes closed, open to verbal. Pt without c/o at this time. No change in RESP/CV/NV status. Pt remains SR 60's on CM with SBP 160's. CT output per IO.
[2016-10-08 06:28] LABS: INR 1.63 (0.85-1.17); PROTIME 19.3 SECONDS (11.6-15.0)
--- NOTE | 2016-10-08 12:15 | NUR ---
R CHEST TUBE REMOVED BY DR. WASHINGTON. SITE DRESSED WITH BETADINE OINTMENT AND 4X4S AND COVERED WITH TEGADERM.
--- NOTE | 2016-10-08 19:30 | NUR ---
REPORT RECVD. CARE ASSUMED. INITIAL ASSMNT COMPLETED. SEE FLOWSHEET FOR ALL FINDINGS. RESTING WITH NO DISTRESS. AOX4. RESP UNLABORED. LUNGS DIMINISHED. SPO2 96% ON RA. OCC TELE RN COUGH. SR ON THE MONITOR. PULSES PALP. TEDS/SCDS IN USE. AIR OVERLAY IN USE. DENIES DISCOMFORT. AFEBRILE. UP TO BR WIT MIN ASSIT. RIGHT LATERAL CHEST INCISION CDI. HOB UP. C/L IN REACH. CONT CURRENT POC.
--- NOTE | 2016-10-08 21:30 | NUR ---
UP TO BR TO VOID. BACK TO BED. POSITIONED SELF FOR COMFORT. VSS. HS MEDS GIVEN. PRN MOTRIN REQUESTED FOR PAIN CONTROL. DENIES FURHTER NEEDS. HS SNACK AND PO FLUIDS PROVIDED. CONT CURRENT POC.
--- NOTE | 2016-10-08 23:30 | NUR ---
REASSESSMENT COMPLETED. SEE FLOWSHEET FOR ALL FINDINGS. RESTING WITH NO DISTRESS. AOX4. RESP UNLABORED. LUNGS DIMINISHED. SPO2 96% ON RA. OCC PUTTY MIXER COUGH. SR ON THE MONITOR. PULSES PALP. TEDS/SCDS IN USE. AIR OVERLAY IN USE. DENIES DISCOMFORT. AFEBRILE. UP TO BR WIT MIN ASSI RIGHT LATERAL CHEST INCISION CDI. HOB UP. C/L IN REACH. CONT CURRENT POC.
[2016-10-09] VITALS (11 sets, daily range): BP systolic 133–174; BP diastolic 52–77
--- NOTE | 2016-10-09 01:30 | NUR ---
RESTNG WITH NO DISTRESS. VSS. NO NEEDS VOICED. HOB UP. C/L IN REACH. CONT CURRENT POC.
--- NOTE | 2016-10-09 03:30 | NUR ---
REASSESSMENT COMPLETED. SEE FLOWSHEET FOR ALL FINDINGS. RESTING WITH NO DISTRESS. AOX4. RESP UNLABORED. LUNGS DIMINISHED. SPO2 96% ON RA. OCC SLIDE FORMING MACHINE TENDER COUGH. SR ON THE MONITOR. PULSES PALP. TEDS/SCDS IN USE. AIR OVERLAY IN USE. DENIES DISCOMFORT. AFEBRILE. UP TO BR WIT MIN ASST RIGHT LATERAL CHEST INCISION CDI. HOB UP. C/L IN REACH. CONT CURRENT POC.
--- NOTE | 2016-10-09 05:10 | NUR ---
RETURNED FROM RQDIOLOGY VIA W/C NO DIFF. POSITIONED IN BED FOR COMFORT. VSS. CONT CURRENT POC.
[2016-10-09 06:43] LABS: INR 1.64 (0.85-1.17); PROTIME 19.3 SECONDS (11.6-15.0)
--- NOTE | 2016-10-09 07:30 | NUR ---
RECEIVED PT FOR CARE. PT SITTING UP IN CHAIR. SET UP WITH BREAKFAST TRAY. NO NEEDS AT THIS TIME. VSS.
--- NOTE | 2016-10-09 08:25 | NUR ---
DR. WASHINGTON AT BEDSIDE AND DISCUSSED DISCHARGE PLANNING WITH PT.
--- NOTE | 2016-10-09 08:57 | NUR ---
PT AMBULATING AROUND ROOM. STEADY GAIT NOTED.
--- NOTE | 2016-10-09 10:20 | NUR ---
Patient Name: CJ REDDY Encounter No: [id number] : 1940 Primary Insurance: MEDICARE A & B Anticipated DC Date: 10-04-2016 External Planned Provider: [facility] DCP follow-up note: Order rec'd for home nebulizer. Met with patient & spouse at bedside. Discussed services - they are agreeable. Reviewed list of local agencies - YUN signed for [employer]. Referral faxed and called to Venita with [employer] Nebulizer order faxed & called to Lucinda with [employer] [facility]. Nebulizer will be delivered to the hospital prior to dc. Venus Saxena
[2016-10-09] MEDS ORDERED: IPRAT-ALBUT 0.5-3 ML UPD (10:35)
--- NOTE | 2016-10-09 12:20 | NUR ---
RIGHT DLSC D/C'D WITH CATH TIP INTACT. PT TOLERATED WELL. DISCUSSED DISCHARGE INSTRUCTIONS WITH PT AND PT'S . THEY VOICED UNDERSTANDING.
--- NOTE | 2016-10-09 12:57 | NUR ---
PT TAKEN OUT TO VEHICLE BY WHEELCHAIR. NO S/S OF DISTRESS NOTED. PT REPORTS THEY HAVE ALL BELONGINGS.
== END 2016-10-09 13:01 | disposition home health service (06) | DRG 163 ==
LOC: D.CVICU 08:20
PROVIDERS: Emergency Medicine; Family Medicine; Internal Medicine Pulmonary Disease; ADMIT Internal Medicine Cardiovascular Disease
PROC: 07T70ZZ Resection of Thorax Lymphatic, Open Approach (ICD-10-PCS; 2016-09-27)
PROC: 0BBC0ZZ Excision of Right Upper Lung Lobe, Open Approach (ICD-10-PCS; principal; 2016-09-27 07:30)
DX: C34.11 Malignant neoplasm of upper lobe, right bronchus or lung (principal); J96.01 Acute respiratory failure with hypoxia; D62 Acute posthemorrhagic anemia; E46 Unspecified protein-calorie malnutrition; J95.812 Postprocedural air leak; Z79.01 Long term (current) use of anticoagulants; R51 Headache; E78.5 Hyperlipidemia, unspecified; I10 Essential (primary) hypertension; I25.10 Atherosclerotic heart disease of native coronary artery without angina pectoris; Z95.5 Presence of coronary angioplasty implant and graft; Z86.711 Personal history of pulmonary embolism; R59.1 Generalized enlarged lymph nodes; E87.6 Hypokalemia; J44.9 Chronic obstructive pulmonary disease, unspecified; R53.81 Other malaise; I95.9 Hypotension, unspecified; Z68.27 Body mass index [BMI] 27.0-27.9, adult

== ENCOUNTER → 2016-10-26 09:29 | Outpatient (CLI) | payer MEDICARE, BC, OTHER ==
[2016-09-26 09:29] VITALS: BMI 27.9
[~2016-10-26 09:29] MED LIST changes: +IPRAT-ALBUT 0.5-3 ML UPD; +PHENERGAN25 M1
== END | disposition home or self-care (01) ==
LOC: D.RAD 10-24 11:45
DX: C34.91 Malignant neoplasm of unspecified part of right bronchus or lung (principal)

== ENCOUNTER → 2017-01-01 08:21 | Outpatient (CLI) | payer MEDICARE, BC, OTHER ==
[2016-09-26 09:29] VITALS: BMI 27.9
== END | disposition home or self-care (01) ==
LOC: D.CT 08:21
DX: C34.11 Malignant neoplasm of upper lobe, right bronchus or lung (principal)

== ENCOUNTER 2017-01-17 10:27 | Day surgery (SDC) | payer MEDICARE, BC, OTHER ==
[2017-01-17 11:16] VITALS: BP 145/75; BMI 28.0
[2017-01-17 11:16] LABS: HEMATOCRIT 33.2 % (36.0-48.0); HEMOGLOBIN 10.6 g/dL (12-16); MCH 31.8 pg (26.0-34.0); MCHC 31.9 g/dL (31.0-37.0); MCV 99.7 fL (80.0-100.0); MEAN PLATELET VOLUME 9.6 fL (7.4-10.4); RBC 3.33 10x6/uL (4.00-5.40); RDW 13.7 % (11.5-14.5); WBC 8.4 10x3/uL (4.8-10.8)
[2017-01-17 11:54] LABS: APTT 29.3 SECONDS (22.8-39.4); INR 1.18 (0.85-1.17); PROTIME 14.9 SECONDS (11.6-15.0)
--- NOTE | 2017-01-17 14:14 | NUR ---
1415 DISCHARGE INSTRUCTIONS COMPLETE. PT HAS NO QUESTIONS OR CONCERNS AT THIS TIME. ESCORTED OUT BY VOLUNTEER.
--- NOTE | 2017-02-01 07:24 | OP ---
PATIENT NAME: CJ REDDY MEDICAL RECORD: [id number] :38 LOCATION:D.OPS ADMISSION DATE: SURGEON: ANDRÉS BREEN DO DATE OF OPERATION: 01/17/2017 PROCEDURE: Colonoscopy with polypectomy. INDICATIONS FOR PROCEDURE: Iron deficiency anemia and fecal occult blood positive. SCOPE: [employer] video pediatric colonoscope. MEDICATIONS: Propofol 380 mg IV per anesthesia. WITHDRAWAL TIME: 11 minutes. ESTIMATED BLOOD LOSS: Minimal. COMPLICATIONS: None. FINDINGS: Informed consent was given. The patient was made comfortable with the above medication. After reaching an adequate level of sedation by slow IV push, the patient was placed on her left side. A digital rectal examination was performed and was normal. The endoscope was then advanced under direct visualization through the rectum to the cecum with visualization of the appendiceal orifice and ileocecal valve. The scope was slowly withdrawn and the mucosa was carefully examined. Prep quality was fair to good. Retroflexion was performed in the rectum with a normal appearing rectal wall. There was 1 polyp visualized on today's examination. It was located in the descending colon. It was a small, benign appearing sessile polyp measuring approximately 5 mm in diameter. It was removed in 1 piece using a cold snare and completely retrieved. There was evidence of mild diverticulosis involving scattered diverticula throughout the entire colon. There was no evidence of diverticulitis. The endoscope was withdrawn from the patient. The patient tolerated the procedure well and there were no complications. IMPRESSION: 1. Mild diverticulosis. 2. A single polyp removed using a cold snare as described above. PLAN AND RECOMMENDATIONS: 1. Discharge home when recovery parameters are met. 2. Follow up biopsy specimen results. 3. Continue current diet. 4. Continue current medications. 5. No further colonoscopies are needed for colorectal cancer screening due to the patient's age. 6. Recommend continuing to follow hemoglobin levels with transfusions as needed and replenishment of iron stores if indicated. TRANSINT:[id number] Voice Confirmation ID: [id number] DOCUMENT ID: [id number] OPERATIVE REPORT [id number] MAUREENCJ Mikhail ANDRÉS BREEN DO at 0724 CC: [id number] DICTATION DATE: 01/17/17 1330 MINE FOREMAN: 01/17/17 1501 [facility] 01/17/17 [place] [id number] [place] [address]
== END 2017-01-17 14:16 | disposition home or self-care (01) ==
LOC: D.OPS 10:27
PROVIDERS: Internal Medicine Gastroenterology
DX: D12.4 Benign neoplasm of descending colon (principal); K57.30 Diverticulosis of large intestine without perforation or abscess without bleeding; D50.9 Iron deficiency anemia, unspecified; Z01.812 Encounter for preprocedural laboratory examination

== ENCOUNTER → 2017-01-22 13:49 | Outpatient (CLI) | payer MEDICARE, BC, OTHER ==
[2017-01-17 11:16] VITALS: BMI 28.0
== END | disposition home or self-care (01) ==
LOC: D.MAMMO 10:45
DX: Z12.31 Encounter for screening mammogram for malignant neoplasm of breast (principal)

== ENCOUNTER → 2017-04-09 08:56 | Outpatient (CLI) | payer MEDICARE, BC, OTHER | END | disposition home or self-care (01) | LOC: D.CT 08:56 | DX: C34.11 Malignant neoplasm of upper lobe, right bronchus or lung (principal) ==

== ENCOUNTER 2017-05-21 19:47 | Inpatient (IN) | payer MEDICARE, BC, OTHER ==
[~2017-05-21] VITALS: Ht 160 cm; Wt 58.6 kg
--- NOTE | ~2017-05-21 | EC ---
PATIENT:CJ REDDY DATE OF SERVICE: 05/21/17 SEX: F MEDICAL RECORD: [id number] DATE OF : [birth year] LOCATION:[facility] AGE OF PATIENT: 76 ADMISSION DATE: 05/21/17 REFERRING PHYSICIAN: INTERPRETING PHYSICIAN: MARCIE DAVIS MD ECHOCARDIOGRAM REPORT ECHO CHARGES 4 ECHO COMPLETE CLINICAL DIAGNOSIS: ELEVATED TROPONIN ECHOCARDIOGRAPHIC MEASUREMENTS (adult normal given) AC root (d.<3.7cm) 4.0 cm LV Septum d (<1.2 cm> 1.3 cm Valve Excursion 1.8 cm LV Septum (systole) 1.5 cm Left Atria (s.<4.0cm> 3.6 cm LVPW d(<1.2cm) 1.5 cm RV (d.<2.3cm) 3.5 cm LVPW (sytole) 1.74 cm LV diastole(<5.6CM) 5.7 cm MV E-F(>70mm/sec) cm LV systole 4.9 cm LVOT Diameter 1.7 cm MV exc.(>10mm) 1.3 cm Est.ejection fraction (50-75%) % Pericardial Effusion N DOPPLER: LVIT cm/sec A 114 cm/sec E 94.0 cm/sec LA cm/sec RVSP 16 mmHg LVOT 96 cm/sec AOP1/2T 291 m/s Asc. Ao 127 cm/sec RVOT 93 cm/sec RA cm/sec PA 103 cm/sec AV Gradient Peak 6.42 mmHg AV Mean 3.38 mmHg AV Area 1.9 cm MV Gradient Peak 5.85 mmHg MV Mean 2.21 mmHg MV Area cm COMMENTS: Senior Principal Architect: 2 MAURICE RUBIN Internal Consultant: 4 Dr. Davis TAPE# PACS DATE OF SERVICE: 05/22/2017 PROCEDURE: Transthoracic echocardiogram. FINDINGS: 1. The left ventricle shows evidence of left ventricular hypertrophy. The anterior septal wall is hypokinetic. The proximal septal wall is actually akinetic. Overall, ejection fraction is 30% to 35%, lateral wall and inferior wall are actually hyperkinetic. 2. The right ventricle is mildly dilated with RVH. ECHOCARDIOGRAM REPORT [id number] CJ REDDY 3. The left atrium appears to be normal size. 4. The aortic valve is normal with mild aortic insufficiency. 5. The mitral valve has mild mitral regurgitation. Inflow characteristics are suggestive of diastolic dysfunction versus elevated left ventricular end-diastolic pressures. 6. The pericardium is normal. 7. The pulmonic valve is normal. 8. The right atrium is mildly dilated. CONCLUSIONS: The patient does have evidence of regional wall motion abnormalities with decreased left ventricular ejection fraction. TRANSINT:[id number] Voice Confirmation ID: [id number] DOCUMENT ID: [id number] 05/29/2017 Edited to correct date of service, dm. MARCIE DAVSI MD at 1001 CC: [id number] DICTATION DATE: 05/23/17 0826 BATTERY FILLER: 05/23/17 1101 ADM IN [facility] [address] [place] [address]
--- NOTE | ~2017-05-21 | OP ---
PATIENT NAME: CJ REDDY MEDICAL RECORD: [id number] :38 LOCATION:[facility] D.2304 ADMISSION DATE:05/21/17 SURGEON: SEYMOUR KOO MD DATE OF OPERATION: 05/21/2017 PREOPERATIVE DIAGNOSIS: Acute subdural hematoma. POSTOPERATIVE DIAGNOSIS: Right frontoparietal occipital acute subdural hematoma. Emergency operation at 10 o'clock at night. SURGEON: Seymour Koo MD PROCEDURE: Right frontoparietal craniotomy for evacuation of acute subdural hematoma with a subdural ICP monitor and subdural drain. DESCRIPTION AND TECHNIQUE: After induction of general endotracheal anesthesia, the patient was placed supine on the operating table. The scalp was prepped and draped in the usual sterile fashion over the right frontotemporal parietal area. A curvilinear incision was based over the right zygoma. Edgar clips were applied to the scalp for hemostasis. Two rene holes were created at the superior and inferior aspects of the scalp incision. These were connected with a Midas-Hesham drill using a side cutting rene. Next, the skull flap was elevated from the dura without difficulty. The dura was opened in cruciate manner with a #11 blade and bipolar cautery. There was an obvious acute blood clot in the subdural space. This was irrigated free from the pial surface of brain until the brain was well decompressed. The underlying brain was pulsatile at the conclusion of evacuation of the hematoma. No active bleeders were identified. The dura was left open. A subdural drain/monitor was placed in the subdural space. The skull flap was replaced with titanium plates and screws. The galea was reapproximated with interrupted 2-0 Vicryl suture. Prior to this, the temporalis fascia was reapproximated with 2-0 Vicryl suture. The skin was closed with hilda. A sterile dressing was applied to the wound. The patient was awakened and remained intubated and taken to ICU in stable condition. All counts were reported as correct. Estimated blood loss was 200 cc. TRANSINT:[id number] Voice Confirmation ID: [id number] DOCUMENT ID: [id number] SEYMOUR KOO MD at 1539 CC: [id number] DICTATION DATE: 05/22/17 0003 [facility] OR DEPARTMENT CHIEF LIBRARIAN: 05/22/17 0228 ADM IN [place] [id number] [place] [address]
--- NOTE | ~2017-05-21 | CN ---
PATIENT NAME:CJ REDDY MEDICAL RECORD: [id number] : 38 LOCATION:[id number] ADMIT DATE: 05/21/17 ACCOUNT: [id number] CONSULTING PHYSICIAN: CHRIS HOOK MD REFERRING PHYSICIAN: DONTE NICE MD DATE OF CONSULTATION: 05/22/2017 CONSULT REQUESTING PHYSICIAN: Seymour Aburto MD REASON FOR CONSULTATION: Vent management. HISTORY OF PRESENT ILLNESS: Ms. Reddy is a 76-year-old female who has a fall, came into the hospital with mental status changes. CT scan shows she has a right frontoparietal subdural hematoma. The patient went into the OR for craniotomy and evacuation of the hematoma. Now, the patient is orally intubated and sedated. History was taken by reviewing the patient's chart and talking to the nursing staff. PAST MEDICAL HISTORY: 1. Squamous cell carcinoma of the right upper lobe. 2. Status COPD. 3. Ex-smoker. 4. Coronary artery disease. 5. Hypertension. 6. History of mitral valve prolapse. PAST SURGICAL HISTORY: 1. Right upper lobe lobectomy in September 2016. 2. Hysterectomy. 3. Cataract surgery. 4. Bilateral coronary artery stent placement times 3. ALLERGIES: SHE IS ALLERGIC TO CODEINE, PROLIXIN, AND TRAMADOL. MEDICATIONS: aScentias was reviewed. PERSONAL AND SOCIAL HISTORY: The patient is an ex-smoker. She is a nondrinker. FAMILY HISTORY: Noncontributory. PHYSICAL EXAMINATION: GENERAL: Now, the patient is lying comfortably in bed. She is orally intubated and sedated. She is on SIMV, PEEP of 5 and tidal volume of 550 and pressure support of 10. HEENT: Conjunctivae are pink. Sclerae are not icteric. NECK: Neck is supple. No JVD. The head is in dressing. CHEST: There is no wheeze, no rales. HEART: Rhythm regular, normal sound, no murmur. ABDOMEN: Abdomen is soft. Bowel sounds present. No hepatosplenomegaly. RECTAL: Deferred. EXTREMITIES: No cyanosis, no clubbing, no pedal edema. SKIN: The skin is warm. Normal turgor. CENTRAL NERVOUS SYSTEM: The patient is sedated. She is orally intubated. She is not awake and alert. CONSULT REPORT [id number] CHAR REDDYGIANA Mikhail LABORATORY DATA: CBC: WBC is 13.1, hemoglobin 9.6, hematocrit 29.6, platelet count is 307. Chemistry: Sodium 142, potassium 3.1, BUN is 11, creatinine 0.9, glucose 164. ABG: the pH is 7.42, bicarb is 23.9, the pCO2 is 36.1, and the pO2 is 69. CHEST RADIOGRAPH: There is an elevated right hemidiaphragm. There are no acute infiltrate. IMPRESSION: 1. Hypoxic respiratory failure post-procedure. 2. Subdural hematoma, status post fall. 3. Status post craniotomy for evacuation of the subdural hematoma. 4. History of squamous cell carcinoma of the lung, status post right upper lobe lobectomy. 5. Chronic obstructive pulmonary disease without exacerbation. 6. Ex-smoker. 7. History of pulmonary embolism. RECOMMENDATIONS: 1. Continue mechanical ventilation, adjust the setting. 2. Continue the prophylactic Ancef. 3. Gastrointestinal bleed prophylaxis. 4. Deep vein thrombosis prophylaxis. 5. Follow up labs and chest radiograph. Dr. Aburto, thank you for involving me in the care of Ms. Reddy. TRANSINT:[id number] Voice Confirmation ID: [id number] DOCUMENT ID: [id number] CHRIS HOOK MD at 1340 CC: SEYMOUR ABURTO [id number] DICTATION DATE: 05/22/17 1314 CUSTOMER RETENTION REPRESENTATIVE: 05/22/17 1431 DIS IN 06/02/17 [place] [id number] [place] [id number]
[2017-05-21 21:12] LABS: BASOPHILS 0.1 % (0-2); EOSINOPHILS 0 % (0-7); HEMATOCRIT 38.6 % (36.0-48.0); HEMOGLOBIN 12.1 g/dL (12-16); IMMATURE GRANULOCYTES 0.4 % (0-5); LYMPHOCYTES 4.1 % (15-50); MCH 30.7 pg (26.0-34.0); MCHC 31.3 g/dL (31.0-37.0); MEAN PLATELET VOLUME 9.9 fL (7.4-10.4); MONOCYTES 8.6 % (2-11); NEUTROPHILS 86.8 % (40-80); RBC 3.94 10x6/uL (4.00-5.40); RDW 14.7 % (11.5-14.5); WBC 14.7 10x3/uL (4.8-10.8)
[2017-05-21 21:28] LABS: PLATELET COUNT 337 10x3/uL (130-400)
[2017-05-21 21:36] LABS: ALBUMIN 3.4 g/dL (3.4-5.0); ALKALINE PHOSPHATASE 166 U/L (46-116); ALT (SGPT) 15 U/L (10-68); BILIRUBIN - TOTAL 0.22 mg/dL (0.2-1.3); CALC OSMOLALITY 283 mosm/kg (275-300); CALCIUM 8.8 mg/dL (8.5-10.1); CARBON DIOXIDE 26.2 mmol/L (21.0-32.0); CHLORIDE - SERUM 102 mmol/L (98-107); POTASSIUM - SERUM 4.4 mmol/L (3.5-5.1); SODIUM 139 mmol/L (136-145); UREA NITROGEN 13 mg/dL (7-18); eGFR NON AFRICAN AMERICAN 57 mL/min (90-120)
[2017-05-21 21:41] LABS: GLUCOSE 198 mg/dL (74-106)
[2017-05-21 21:43] LABS: CKMB 10.3 U/L (0.0-3.6)
[2017-05-21 21:51] LABS: TROPONIN-I 2.062 ng/mL (0.000-0.060)
[2017-05-21 21:51] LABS: APPEARANCE CLEAR (CLEAR); BILIRUBIN NEGATIVE (NEGATIVE); COLOR YELLOW (YELLOW); GLUCOSE 100 mg/dL (NEGATIVE); KETONE SMALL mg/dL (NEGATIVE); NITRITE NEGATIVE (NEGATIVE); PROTEIN NEGATIVE (NEGATIVE); UROBILINOGEN NORMAL (NORMAL)
[2017-05-21 22:07] LABS: APTT 22.6 SECONDS (22.8-39.4); INR 1.18 (0.85-1.17); PROTIME 14.6 SECONDS (11.6-15.0)
[2017-05-22] VITALS (26 sets, daily range): BP systolic 112–159; BP diastolic 64–96; BMI 27.4; BMI 27.6
[2017-05-22 06:17] LABS: BASOPHILS 0.1 % (0-2); EOSINOPHILS 0 % (0-7); IMMATURE GRANULOCYTES 0.3 % (0-5); LYMPHOCYTES 4.3 % (15-50); MCH 30.8 pg (26.0-34.0); MCHC 32.4 g/dL (31.0-37.0); MEAN PLATELET VOLUME 10.3 fL (7.4-10.4); NEUTROPHILS 90.3 % (40-80); PLATELET COUNT 307 10x3/uL (130-400); WBC 13.1 10x3/uL (4.8-10.8)
[2017-05-22 06:35] LABS: HEMATOCRIT 29.6 % (36.0-48.0); HEMOGLOBIN 9.6 g/dL (12-16); MCV 94.9 fL (80.0-100.0); RBC 3.12 10x6/uL (4.00-5.40)
[2017-05-22 06:54] LABS: ALBUMIN 3.3 g/dL (3.4-5.0); ALKALINE PHOSPHATASE 130 U/L (46-116); ALT (SGPT) 16 U/L (10-68); BILIRUBIN - TOTAL 0.29 mg/dL (0.2-1.3); CALC OSMOLALITY 284 mosm/kg (275-300); CALCIUM 8.6 mg/dL (8.5-10.1); CARBON DIOXIDE 22.1 mmol/L (21.0-32.0); CHLORIDE - SERUM 103 mmol/L (98-107); CREATINE KINASE 452 UL (21-215); CREATININE - SERUM 0.8 mg/dL (0.6-1.3); GLUCOSE 208 mg/dL (74-106); MAGNESIUM - SERUM 1.8 mg/dL (1.8-2.4); POTASSIUM - SERUM 3.3 mmol/L (3.5-5.1); PROTEIN - SERUM 7.5 g/dL (6.4-8.2); SODIUM 140 mmol/L (136-145); TROPONIN-I 2.812 ng/mL (0.000-0.060); UREA NITROGEN 12 mg/dL (7-18); eGFR NON AFRICAN AMERICAN 74 mL/min (90-120)
[2017-05-22 11:07] LABS: ANION GAP 12.4 mmol/L (8-16); CALCIUM 8.2 mg/dL (8.5-10.1); CREATININE - SERUM 0.9 mg/dL (0.6-1.3); POTASSIUM - SERUM 3.1 mmol/L (3.5-5.1)
[2017-05-22 11:08] LABS: CARBON DIOXIDE 27.7 mmol/L (21.0-32.0)
[2017-05-22 23:50] LABS: ANION GAP 13.9 mmol/L (8-16); CALCIUM 8.4 mg/dL (8.5-10.1); CARBON DIOXIDE 26.4 mmol/L (21.0-32.0); CREATININE - SERUM 0.8 mg/dL (0.6-1.3); POTASSIUM - SERUM 3.3 mmol/L (3.5-5.1)
[2017-05-23] VITALS (24 sets, daily range): BP systolic 90–165; BP diastolic 11–88; Ht 160 cm; Wt 58.6 kg
[2017-05-23 04:02] LABS: BASOPHILS 0 % (0-2); EOSINOPHILS 0 % (0-7); HEMATOCRIT 28.8 % (36.0-48.0); HEMOGLOBIN 9.1 g/dL (12-16); IMMATURE GRANULOCYTES 0.2 % (0-5); MCH 30.8 pg (26.0-34.0); MCHC 31.6 g/dL (31.0-37.0); MEAN PLATELET VOLUME 10.3 fL (7.4-10.4); MONOCYTES 5.6 % (2-11); NEUTROPHILS 89.2 % (40-80); PLATELET COUNT 252 10x3/uL (130-400); RBC 2.95 10x6/uL (4.00-5.40); RDW 15.3 % (11.5-14.5); WBC 12.3 10x3/uL (4.8-10.8)
[2017-05-23 04:04] LABS: MCV 97.6 fL (80.0-100.0)
[2017-05-23 04:16] LABS: ANION GAP 13.6 mmol/L (8-16); CALCIUM 8.5 mg/dL (8.5-10.1); CARBON DIOXIDE 27.6 mmol/L (21.0-32.0); CREATININE - SERUM 0.8 mg/dL (0.6-1.3); POTASSIUM - SERUM 3.2 mmol/L (3.5-5.1)
[2017-05-23 11:28] LABS: ANION GAP 12.6 mmol/L (8-16); CALCIUM 8.8 mg/dL (8.5-10.1); CREATININE - SERUM 0.9 mg/dL (0.6-1.3); POTASSIUM - SERUM 3.6 mmol/L (3.5-5.1)
[2017-05-24] VITALS (24 sets, daily range): BP systolic 97–175; BP diastolic 59–88
[2017-05-24 05:42] LABS: BASOPHILS 0.1 % (0-2); EOSINOPHILS 0 % (0-7); HEMATOCRIT 29.7 % (36.0-48.0); HEMOGLOBIN 9.2 g/dL (12-16); IMMATURE GRANULOCYTES 0.4 % (0-5); LYMPHOCYTES 8.3 % (15-50); MEAN PLATELET VOLUME 10.8 fL (7.4-10.4); MONOCYTES 7.6 % (2-11); NEUTROPHILS 83.6 % (40-80); PLATELET COUNT 251 10x3/uL (130-400); RBC 2.97 10x6/uL (4.00-5.40); RDW 15.4 % (11.5-14.5); WBC 11.8 10x3/uL (4.8-10.8)
[2017-05-24 05:55] LABS: ANION GAP 15.3 mmol/L (8-16); CARBON DIOXIDE 26.9 mmol/L (21.0-32.0); CREATININE - SERUM 0.8 mg/dL (0.6-1.3); MAGNESIUM - SERUM 2.3 mg/dL (1.8-2.4); POTASSIUM - SERUM 3.2 mmol/L (3.5-5.1)
[2017-05-24 10:57] LABS: ANION GAP 14.2 mmol/L (8-16); CALCIUM 7.9 mg/dL (8.5-10.1); CARBON DIOXIDE 26.9 mmol/L (21.0-32.0); CREATININE - SERUM 0.8 mg/dL (0.6-1.3)
[2017-05-24 10:59] LABS: POTASSIUM - SERUM 4.1 mmol/L (3.5-5.1)
[2017-05-25] VITALS (24 sets, daily range): BP systolic 112–186; BP diastolic 52–90
[2017-05-25 03:36] LABS: BASOPHILS 0 % (0-2); EOSINOPHILS 0 % (0-7); HEMATOCRIT 31.8 % (36.0-48.0); HEMOGLOBIN 9.7 g/dL (12-16); IMMATURE GRANULOCYTES 0.9 % (0-5); LYMPHOCYTES 3.4 % (15-50); MCH 30.5 pg (26.0-34.0); MCHC 30.5 g/dL (31.0-37.0); MEAN PLATELET VOLUME 10.5 fL (7.4-10.4); MONOCYTES 5.1 % (2-11); NEUTROPHILS 90.6 % (40-80); PLATELET COUNT 277 10x3/uL (130-400); RBC 3.18 10x6/uL (4.00-5.40); RDW 15.2 % (11.5-14.5); WBC 13.9 10x3/uL (4.8-10.8)
[2017-05-25 03:43] LABS: CALCIUM 8.5 mg/dL (8.5-10.1); CARBON DIOXIDE 28.3 mmol/L (21.0-32.0); CREATININE - SERUM 0.8 mg/dL (0.6-1.3); MAGNESIUM - SERUM 2.4 mg/dL (1.8-2.4); POTASSIUM - SERUM 3.3 mmol/L (3.5-5.1)
[2017-05-26] VITALS (24 sets, daily range): BP systolic 117–161; BP diastolic 62–98
[2017-05-26 04:38] LABS: BASOPHILS 0.1 % (0-2); EOSINOPHILS 0 % (0-7); HEMOGLOBIN 10.5 g/dL (12-16); IMMATURE GRANULOCYTES 1.1 % (0-5); LYMPHOCYTES 5.6 % (15-50); MCH 30.7 pg (26.0-34.0); MCHC 30.9 g/dL (31.0-37.0); MCV 99.4 fL (80.0-100.0); MEAN PLATELET VOLUME 10.8 fL (7.4-10.4); MONOCYTES 3.8 % (2-11); NEUTROPHILS 89.4 % (40-80); PLATELET COUNT 326 10x3/uL (130-400); RBC 3.42 10x6/uL (4.00-5.40); RDW 15.4 % (11.5-14.5); WBC 12.9 10x3/uL (4.8-10.8)
[2017-05-26 04:56] LABS: ANION GAP 13.8 mmol/L (8-16); CALCIUM 9.3 mg/dL (8.5-10.1); CREATININE - SERUM 0.9 mg/dL (0.6-1.3); MAGNESIUM - SERUM 2.7 mg/dL (1.8-2.4); POTASSIUM - SERUM 3.8 mmol/L (3.5-5.1)
[2017-05-27] VITALS (24 sets, daily range): BP systolic 121–155; BP diastolic 63–97
[2017-05-27 05:36] LABS: BASOPHILS 0.1 % (0-2); EOSINOPHILS 0 % (0-7); HEMATOCRIT 33.6 % (36.0-48.0); HEMOGLOBIN 10.4 g/dL (12-16); IMMATURE GRANULOCYTES 1.1 % (0-5); LYMPHOCYTES 5.5 % (15-50); MCH 30.7 pg (26.0-34.0); MCV 99.1 fL (80.0-100.0); MEAN PLATELET VOLUME 10.7 fL (7.4-10.4); MONOCYTES 3.3 % (2-11); PLATELET COUNT 329 10x3/uL (130-400); RBC 3.39 10x6/uL (4.00-5.40); RDW 15.2 % (11.5-14.5); WBC 15.6 10x3/uL (4.8-10.8)
[2017-05-27 05:48] LABS: ANION GAP 15.6 mmol/L (8-16); CALCIUM 8.6 mg/dL (8.5-10.1); CARBON DIOXIDE 25.9 mmol/L (21.0-32.0); MAGNESIUM - SERUM 2.6 mg/dL (1.8-2.4); POTASSIUM - SERUM 3.5 mmol/L (3.5-5.1)
[2017-05-28] VITALS (25 sets, daily range): BP systolic 90–143; BP diastolic 43–95
[2017-05-28 04:35] LABS: BASOPHILS 0.1 % (0-2); EOSINOPHILS 0 % (0-7); HEMATOCRIT 32.4 % (36.0-48.0); IMMATURE GRANULOCYTES 2.3 % (0-5); LYMPHOCYTES 4.8 % (15-50); MCH 30.3 pg (26.0-34.0); MCHC 30.9 g/dL (31.0-37.0); MCV 98.2 fL (80.0-100.0); MEAN PLATELET VOLUME 10.5 fL (7.4-10.4); MONOCYTES 4.4 % (2-11); NEUTROPHILS 88.4 % (40-80); PLATELET COUNT 321 10x3/uL (130-400); RDW 14.8 % (11.5-14.5); WBC 19.4 10x3/uL (4.8-10.8)
[2017-05-28 05:12] LABS: ANION GAP 16.5 mmol/L (8-16); CALCIUM 8.5 mg/dL (8.5-10.1); CARBON DIOXIDE 23.8 mmol/L (21.0-32.0); CREATININE - SERUM 1.1 mg/dL (0.6-1.3); POTASSIUM - SERUM 3.3 mmol/L (3.5-5.1)
[2017-05-29] VITALS (24 sets, daily range): BP systolic 92–153; BP diastolic 47–100
[2017-05-29 05:02] LABS: BASOPHILS 0.1 % (0-2); EOSINOPHILS 0 % (0-7); HEMATOCRIT 33.7 % (36.0-48.0); HEMOGLOBIN 10.4 g/dL (12-16); IMMATURE GRANULOCYTES 2.1 % (0-5); LYMPHOCYTES 5.1 % (15-50); MCH 30.4 pg (26.0-34.0); MCHC 30.9 g/dL (31.0-37.0); MCV 98.5 fL (80.0-100.0); MEAN PLATELET VOLUME 10.7 fL (7.4-10.4); MONOCYTES 3.6 % (2-11); NEUTROPHILS 89.1 % (40-80); PLATELET COUNT 341 10x3/uL (130-400); RBC 3.42 10x6/uL (4.00-5.40); WBC 17.9 10x3/uL (4.8-10.8)
[2017-05-29 05:25] LABS: ALBUMIN 3.1 g/dL (3.4-5.0); ANION GAP 15.3 mmol/L (8-16); BILIRUBIN - DIRECT 0.09 mg/dL (0.00-0.30); BILIRUBIN - INDIRECT 0.19 mg/dL (0.00-1.00); BILIRUBIN - TOTAL 0.28 mg/dL (0.2-1.3); CALCIUM 8.7 mg/dL (8.5-10.1); CARBON DIOXIDE 29.6 mmol/L (21.0-32.0); CREATININE - SERUM 0.9 mg/dL (0.6-1.3); MAGNESIUM - SERUM 2.5 mg/dL (1.8-2.4); PHOSPHOROUS 4.9 mg/dL (2.5-4.9); POTASSIUM - SERUM 3.9 mmol/L (3.5-5.1); PROTEIN - SERUM 6.5 g/dL (6.4-8.2)
[2017-05-29 05:52] LABS: PHENYTOIN (DILANTIN) 20.2 ug/mL (10.0-20.0)
[2017-05-29 18:53] LABS: VALPROIC ACID (DEPAKOTE) 55.7 ug/mL (50.0-100.0)
[2017-05-29 18:59] LABS: PHENYTOIN (DILANTIN) 14.9 ug/mL (10.0-20.0)
[2017-05-30] VITALS (24 sets, daily range): BP systolic 98–153; BP diastolic 55–100
[2017-05-30 05:31] LABS: HEMOGLOBIN 11.3 g/dL (12-16); MCH 30.4 pg (26.0-34.0); MCHC 30.5 g/dL (31.0-37.0); MCV 99.5 fL (80.0-100.0); MEAN PLATELET VOLUME 10.5 fL (7.4-10.4); PLATELET COUNT 379 10x3/uL (130-400); RBC 3.72 10x6/uL (4.00-5.40); RDW 14.7 % (11.5-14.5); WBC 26.6 10x3/uL (4.8-10.8)
[2017-05-30 05:44] LABS: ANION GAP 17.1 mmol/L (8-16); CALCIUM 8.8 mg/dL (8.5-10.1); CARBON DIOXIDE 28.4 mmol/L (21.0-32.0); MAGNESIUM - SERUM 2.6 mg/dL (1.8-2.4); PHOSPHOROUS 4.9 mg/dL (2.5-4.9); POTASSIUM - SERUM 3.5 mmol/L (3.5-5.1); VALPROIC ACID (DEPAKOTE) 51.6 ug/mL (50.0-100.0)
[2017-05-30 06:30] LABS: HYPOCHROMASIA OCC; LYMPHOCYTES 4 % (15-50); MONOCYTES 5 % (2-11); NEUTROPHILS 90 % (40-80); PLATELET ESTIMATE NORMAL; ROULEAUX OCC
[2017-05-31] VITALS (24 sets, daily range): BP systolic 94–146; BP diastolic 36–114
[2017-05-31 04:55] LABS: BASOPHILS 0.1 % (0-2); EOSINOPHILS 0 % (0-7); HEMATOCRIT 38.5 % (36.0-48.0); HEMOGLOBIN 11.6 g/dL (12-16); IMMATURE GRANULOCYTES 2.5 % (0-5); LYMPHOCYTES 6.7 % (15-50); MCH 30.5 pg (26.0-34.0); MCHC 30.1 g/dL (31.0-37.0); MCV 101.3 fL (80.0-100.0); MEAN PLATELET VOLUME 10.8 fL (7.4-10.4); MONOCYTES 5.8 % (2-11); NEUTROPHILS 84.9 % (40-80); PLATELET COUNT 370 10x3/uL (130-400); RDW 15.1 % (11.5-14.5); WBC 26.7 10x3/uL (4.8-10.8)
[2017-05-31 04:57] LABS: ANION GAP 16.6 mmol/L (8-16); CARBON DIOXIDE 30.8 mmol/L (21.0-32.0); CREATININE - SERUM 1.1 mg/dL (0.6-1.3); POTASSIUM - SERUM 3.4 mmol/L (3.5-5.1)
[2017-06-01] VITALS (22 sets, daily range): BP systolic 111–152; BP diastolic 29–99
[2017-06-01 04:21] LABS: ANION GAP 17.6 mmol/L (8-16); CARBON DIOXIDE 28.9 mmol/L (21.0-32.0); POTASSIUM - SERUM 3.5 mmol/L (3.5-5.1)
[2017-06-01 04:26] LABS: BASOPHILS 0.1 % (0-2); EOSINOPHILS 0 % (0-7); HEMATOCRIT 38.7 % (36.0-48.0); IMMATURE GRANULOCYTES 1.7 % (0-5); LYMPHOCYTES 4.9 % (15-50); MCH 31.2 pg (26.0-34.0); MCV 100.5 fL (80.0-100.0); MEAN PLATELET VOLUME 10.8 fL (7.4-10.4); MONOCYTES 5.2 % (2-11); NEUTROPHILS 88.1 % (40-80); PLATELET COUNT 334 10x3/uL (130-400); RBC 3.85 10x6/uL (4.00-5.40); RDW 14.9 % (11.5-14.5); WBC 26.6 10x3/uL (4.8-10.8)
[2017-06-01 09:20] LABS: PHENYTOIN (DILANTIN) 12.9 ug/mL (10.0-20.0); VALPROIC ACID (DEPAKOTE) 75.7 ug/mL (50.0-100.0)
[2017-06-02] VITALS (53 sets, daily range): BP systolic 66–140; BP diastolic 20–74
[2017-06-02 06:04] LABS: BASOPHILS 0.2 % (0-2); EOSINOPHILS 0 % (0-7); HEMATOCRIT 34.5 % (36.0-48.0); HEMOGLOBIN 10.5 g/dL (12-16); IMMATURE GRANULOCYTES 2.5 % (0-5); LYMPHOCYTES 3.3 % (15-50); MCH 30.6 pg (26.0-34.0); MCHC 30.4 g/dL (31.0-37.0); MCV 100.6 fL (80.0-100.0); MEAN PLATELET VOLUME 11.2 fL (7.4-10.4); MONOCYTES 6.7 % (2-11); NEUTROPHILS 87.3 % (40-80); PLATELET COUNT 237 10x3/uL (130-400); RBC 3.43 10x6/uL (4.00-5.40); RDW 15.3 % (11.5-14.5)
[2017-06-02 06:08] LABS: ALBUMIN 2.5 g/dL (3.4-5.0); BILIRUBIN - TOTAL 0.6 mg/dL (0.2-1.3); CALCIUM 8.4 mg/dL (8.5-10.1); CARBON DIOXIDE 22.7 mmol/L (21.0-32.0); PROTEIN - SERUM 5.7 g/dL (6.4-8.2)
[2017-06-02 06:11] LABS: CREATININE - SERUM 2.2 mg/dL (0.6-1.3)
[2017-06-02 06:12] LABS: ANION GAP 29.2 mmol/L (8-16); POTASSIUM - SERUM 5.9 mmol/L (3.5-5.1)
[2017-06-02 15:48] LABS: APPEARANCE CLOUDY (CLEAR); BILIRUBIN NEGATIVE (NEGATIVE); COLOR YELLOW (YELLOW); GLUCOSE NEGATIVE (NEGATIVE); KETONE NEGATIVE (NEGATIVE); NITRITE NEGATIVE (NEGATIVE); PROTEIN TRACE mg/dL (NEGATIVE); UROBILINOGEN NORMAL (NORMAL)
[2017-06-02 15:49] LABS: BACTERIA MANY /hpf (NONE SEEN); EPITHELIAL CELLS 0-5 /hpf (0-5); WHITE CELLS - URINE 25-50 /hpf (0-5)
[2017-06-02 15:50] LABS: AMORPHOUS SEDIMENT <1+ /lpf (NONE SEEN)
== END 2017-06-02 20:09 | DRG 25 ==
LOC: D.ER 19:47 → D.EDHOLD 22:14 → D.ICU 22:14 → D.EDHOLD 22:40 → D.ICU 23:46
PROVIDERS: Family Medicine; Internal Medicine Nephrology; Internal Medicine Pulmonary Disease; Neurological Surgery
PROC: 00H032Z Insertion of Monitoring Device into Brain, Percutaneous Approach (ICD-10-PCS; 2017-05-21)
PROC: 0BH17EZ Insertion of Endotracheal Airway into Trachea, Via Natural or Artificial Opening (ICD-10-PCS; 2017-05-21)
PROC: 5A1945Z Respiratory Ventilation, 24-96 Consecutive Hours (ICD-10-PCS; 2017-05-21)
PROC: 0T9B70Z Drainage of Bladder with Drainage Device, Via Natural or Artificial Opening (ICD-10-PCS; 2017-05-21)
PROC: 4A103BD Monitoring of Intracranial Pressure, Percutaneous Approach (ICD-10-PCS; 2017-05-21)
PROC: 00C40ZZ Extirpation of Matter from Intracranial Subdural Space, Open Approach (ICD-10-PCS; principal; 2017-05-21 22:30)
PROC: 05H633Z Insertion of Infusion Device into Left Subclavian Vein, Percutaneous Approach (ICD-10-PCS; 2017-05-22)
DX: S06.5X9A Traumatic subdural hemorrhage with loss of consciousness of unspecified duration, initial encounter (principal); J95.821 Acute postprocedural respiratory failure; G93.6 Cerebral edema; G93.49 Other encephalopathy; A41.9 Sepsis, unspecified organism; R65.21 Severe sepsis with septic shock; N17.0 Acute kidney failure with tubular necrosis; I69.954 Hemiplegia and hemiparesis following unspecified cerebrovascular disease affecting left non-dominant side; E87.0 Hyperosmolality and hypernatremia; W19.XXXA Unspecified fall, initial encounter; J44.9 Chronic obstructive pulmonary disease, unspecified; Z79.01 Long term (current) use of anticoagulants; D64.9 Anemia, unspecified; I25.10 Atherosclerotic heart disease of native coronary artery without angina pectoris; R40.2313 Coma scale, best motor response, none, at hospital admission; R40.2113 Coma scale, eyes open, never, at hospital admission; R40.2213 Coma scale, best verbal response, none, at hospital admission; H55.81 Deficient saccadic eye movements; E86.0 Dehydration; E87.5 Hyperkalemia; R74.8 Abnormal levels of other serum enzymes; Z86.711 Personal history of pulmonary embolism; Z87.891 Personal history of nicotine dependence